=== PATIENT | female | born 1960 | race Caucasian/White ===

== ENCOUNTER → 2016-06-10 | Outpatient (CLI) | payer OTHER ==
[~2016-06-10] VITALS: Ht 162.6 cm; Wt 130.8 kg
[~2016-06-10] MED LIST: AMBIEN 5 MG TABL5 M1 PO; ATORVASTATIN CA40 MG PO; BUTALB-APAP-CA1 EACH PO; CELEBREX 200 M200 M1 PO; CLONAZEPAM 0.50.5 M1 PO; HYSINGLA ER60 MG PO; LISINOPRIL20 MG PO; LYRICA 75 MG CA75 MG PO; MEDROLDOSEPACK PO; METFORMIN HCL500 MG PO; MS CONTIN15 MG PO; PROAIR HFA8.5 GM; PROTONIX40 M1 PO; ROXICODONE5 M2 PO; ROXICODONE5 MG PO; SERTRALINE HCL50 MG PO; SKELAXIN 800 M800 MG PO; SYMBICORT160 MCG/4. INH; TIZANIDINE HCL 22 M1 PO; TIZANIDINE HCL6 MG PO; TRAMADOL 50 MG50 MG PO; VICODIN 5-3001 EACH PO; VOLTAREN GEL 1100 G2 TOP; WELLBUTRIN SR150 MG PO; ZANAFLEX4 MG PO; ZOCOR40 MG PO; ZPAK PO
--- NOTE | ~2016-06-10 | HPC ---
[facility] [place] [place] [address] PAIN MANAGEMENT CONSULTATION Name: BERNARD MONACO Room #: REG Sara Guillory.#: [id number] Admission: 06/10/16 Attend Phys: Tu Varner DO Discharge: Date of : 62 Report #: [id number] THIS REPORT FOR: //name// CC: Deirdre Varner DATE OF SERVICE: 06/10/2016 The patient is a 56-year-old female being treated for DJD bilateral knees, status post left total knee arthroplasty, significant pain right knee. She prior had trauma to the right ankle, I think late last year had increasing pain, axial back pain requiring complex medication management. Last seen in pain clinic 04/15/2016, continued on Hysingla 60 mg 1 a day, tizanidine 2 mg t.i.d., tramadol p.r.n. The patient returns to pain clinic today noting medications are generally helpful. She has continued to home physical therapy every other day and stretching daily. Rates her current pain as 3/10. Average daily pain score is 4-5 on a 0-10 visual analog scale, worse pain as 7/10. She did have a steroid injection in her right knee in April and this has overall improved function. Uses a cane in left hand. Still uses a brace in the right knee, is actually scheduled to have a right total knee arthroplasty at some point in near future because the date has not been set yet. PHYSICAL EXAMINATION: Shows obese 56-year-old female, BMI is 49.5 kilograms per meter squared, vital signs are otherwise within normal limits as noted on the EMR. She does not use tobacco products. Rises from the chair using armrest, has an antalgic gait favoring the right leg. Uses a cane in left hand. Pain impact score is 2 out 70. ASSESSMENT: Degenerative joint disease affecting bilateral lower extremities. Status post left total knee arthroplasty, significant pain, right knee and ankle, chronic pain syndrome requiring complex medication management, axial back pain. Stable on baseline medications. RECOMMENDATIONS: 1. Urine drug screen today. 2. Make the urine drug screen today. No aberrant behavior suggestive for drug diversion, simply complying with our opiate consent to treat contract. I do not actually see prior UDS on the chart. 3. Continue Hysingla 60 mg 1 a day, tizanidine 2 mg t.i.d., tramadol 150 mg 1 tablet 3-4 times a day, limit 100 tablets for 30 days, taken the liberty of writing for 2 months of current medications. We will review urine drug screen [address] [address] PAIN MANAGEMENT CONSULTATION Name: BERNARD MONACO Room #: REG [facility] Zoya#: [id number] Admission: 06/10/16 Attend Phys: Tu Varner DO Discharge: Date of : 62 Report #: [id number] at that time and hopefully discuss proposed medication management for total knee arthroplasty as needed. <ELECTRONICALLY SIGNED> By: Tu Varner DO 06/11/16 0736 1523 0246 Tu Varner DO /nt
[2016-06-10 14:39] VITALS: BP 122/81
== END | disposition home or self-care (01) ==
LOC: PAIN 07:26
DX: M17.0 Bilateral primary osteoarthritis of knee (principal); M25.561 Pain in right knee; M25.571 Pain in right ankle and joints of right foot; G89.4 Chronic pain syndrome; M25.9 Joint disorder, unspecified; F11.20 Opioid dependence, uncomplicated; Z96.652 Presence of left artificial knee joint

== ENCOUNTER → 2016-08-05 | Outpatient (CLI) | payer OTHER ==
[~2016-08-05] VITALS: Ht 162.6 cm; Wt 136.1 kg
--- NOTE | ~2016-08-05 | HPC ---
[facility] [place] [address] PAIN MANAGEMENT CONSULTATION Name: BERNARD MONACO Room #: REG [facility] Pastora.#: [id number] Admission: 08/05/16 Attend Phys: Tu Varner DO Discharge: Date of : 62 Report #: [id number] THIS REPORT FOR: //name// CC: Deirdre Varner DATE OF SERVICE: 08/05/2016 The patient is a 56-year-old female being treated for DJD bilateral knees, chronic pain requiring complex medication management. Last visit was 06/10/2016. Urine drug screen at that time was positive for prescribed medications. She continues on Hysingla 60 mg 1 a day, tizanidine 2 mg t.i.d. for muscle spasm. She notes she is planning to have her right total knee arthroplasty done 08/23/2016 (left total knee arthroplasty was done I believe within the past 1-2 years). She understands she will be in a senior living facility for a short time following surgery (I believe she was at [facility] following her contralateral total knee arthroplasty). She notes medications are helping with chronic pain. She rates her pain anywhere from 6 today, but usually, it is about 3 on a 0-10 visual analog scale. She notes that right knee is becoming more and more problematic. We reviewed the fact that opiate medications are being used to provide analgesia adequate to support activities of daily living, not attempting to achieve a specific pain score on the 0-10 Visual Analog Scale. The current opiate medications are providing sufficient analgesia to allow the patient to participate in activities of daily living. The patient is not exhibiting any aberrant behavior suggestive of drug diversion. The patient is not having any adverse reactions to medications. The patient is not suffering from daytime somnolence or mental acuity changes. The patient is managing opiate-induced constipation with appropriate blck-bpc-utupigi agents and dietary considerations. The patient was counseled on concern for caution with operating a motor vehicle while using opiate medications. A physical exam was performed and the patient's functional status was evaluated. All patients with back pain were advised against the bed rest greater than 4 days and were advised to return to normal activities. Pain score assessment was noted and the treatment plan was reviewed with the patient. All current medications, both prescribed and OTC were reviewed and reconciled on the electronic medical record. Tobacco screening was accomplished and smoking cessation was advised when indicated. BMI was noted and diet/exercise modification was recommended for all patients following outside normal [address] [address] PAIN MANAGEMENT CONSULTATION Name: BERNARD MONACO Room #: REG [facility] Kenny#: [id number] Admission: 08/05/16 Attend Phys: Tu Varner DO Discharge: Date of : 62 Report #: [id number] parameters. I reviewed with the patient today their responsibilities to safeguard prescription medications, reviewed their responsibility to utilize medications only as prescribed by the physician. They are to seek and receive pain medications only from 1 physician group ( [facility]). They are to use 1 pharmacy and keep the clinic informed if they change pharmacies. Their responsibilities include making followup visits in a timely fashion and to avoid abrupt discontinuation of medication usage. Their responsibilities further include bringing their medications (bottles from the pharmacy with residual pills) to the visit for possible confirmation of pill counts and the patient understands it is their responsibility to submit to random drug screens to ensure both that the medications prescribed are present, and that no other controlled substances are present. All prescriptions provided today were generated electronically. PHYSICAL EXAMINATION: Shows a 56-year-old female, morbidly obese with BMI 51.5 kilograms per meter squared. Vital signs are stable as noted in the EMR. Rises from chair using armrest, uses a cane in her right hand, markedly antalgic gait. Some ballottable edema in the right knee. ASSESSMENT: Symptomatic degenerative joint disease, bilateral knees; chronic pain syndrome requiring complex medication management, stable on current medication. RECOMMENDATION: Continue Hysingla 60 mg 1 a day, tizanidine for breakthrough pain. Told the patient to discuss with her orthopedic surgeon and/or anesthesiologist. They will likely want her to continue n.p.o. the day of surgery, but to take her Hysingla with a sip of water. I told her that I will enable her to use whatever postoperative pain medicine her orthopedic surgeon typically uses in conjunction with the Hysingla, but we will plan on that being a "short." Discharged in good and stable condition. Follow up in 2 months for reevaluation. <ELECTRONICALLY SIGNED> By: Tu Varner DO 08/06/16 0948 1510 1655 Tu Varner DO /nt
[2016-08-05 14:02] VITALS: BP 113/72
== END ==
LOC: PAIN 07:09
DX: M17.0 Bilateral primary osteoarthritis of knee (principal); G89.4 Chronic pain syndrome; E66.01 Morbid (severe) obesity due to excess calories; Z68.43 Body mass index [BMI] 50.0-59.9, adult; K29.80 Duodenitis without bleeding; Z88.8 Allergy status to other drugs, medicaments and biological substances

== ENCOUNTER → 2016-09-27 | Outpatient (CLI) | payer OTHER ==
[~2016-09-27] VITALS: Ht 162.6 cm; Wt 130.6 kg
--- NOTE | ~2016-09-27 | HPC ---
[facility] [address] [address] PAIN MANAGEMENT CONSULTATION Name: BERNARD MONACO Room #: REG [facility] MConrad.#: [id number] Admission: 09/27/16 Attend Phys: Tu Varner DO Discharge: Date of : 62 Report #: [id number] THIS REPORT FOR: //name// CC: Deirdre Varner HISTORY OF PRESENT ILLNESS: The patient is a 56-year-old female being treated for DJD bilateral knees, chronic pain syndrome requiring complex medication management. She was last seen in the pain clinic on 06/10/2016. The patient was continued on baseline medication including Hysingla 60 mg 1 a day; tramadol 50 mg, limit 100 tablets for 30 days; tizanidine 2 mg t.i.d. Last urine drug screen was 06/10/2016, that was positive for prescribed medications and no others. He returns to pain clinic today, she did actually progress to have a right total knee arthroplasty 5 weeks ago. She had had a left total knee arthroplasty quite some time ago. She notes she is doing well post-surgery. Aching, sore, heavy sensation in the knees. She rates it 3-4 on a VAS. PHYSICAL EXAMINATION: Shows a 56-year-old female, BMI is 49.4 kilograms per meter squared. Vital signs are stable as noted on the EMR. Again, BMI is elevated at 49.4. Nicely healing scar right knee compatible with recent total knee arthroplasty. Does have a little lower extremity edema bilaterally, +1 to 2 pretibial edema. Please note that her right knee flexion is good about 110 degrees. She does have trouble to full extension. Gait is modestly antalgic. We reviewed the fact that opiate medications are being used to provide analgesia adequate to support activities of daily living, not attempting to achieve a specific pain score on the 0-10 Visual Analog Scale. The current opiate medications are providing sufficient analgesia to allow the patient to participate in activities of daily living. The patient is not exhibiting any aberrant behavior suggestive of drug diversion. The patient is not having any adverse reactions to medications. The patient is not suffering from daytime somnolence or mental acuity changes. The patient is managing opiate-induced constipation with appropriate vcto-tba-fcciulo agents and dietary considerations. The patient was counseled on concern for caution with operating a motor vehicle while using opiate medications. A physical exam was performed and the patient's functional status was evaluated. All patients with back pain were advised against the bed rest greater than 4 days and were advised to return to normal activities. Pain score assessment was noted and the treatment plan was reviewed with the patient. All current medications, both prescribed and OTC were reviewed and reconciled on the electronic medical record. Tobacco screening was accomplished and smoking cessation was advised when indicated. BMI was noted and diet/exercise modification was recommended for all patients following outside normal [address] [address] PAIN MANAGEMENT CONSULTATION Name: BERNARD MONACO [id number] Admission: 09/27/16 Attend Phys: Tu Varner DO Discharge: Date of : 62 Report #: [id number] parameters. I reviewed with the patient today their responsibilities to safeguard prescription medications, reviewed their responsibility to utilize medications only as prescribed by the physician. They are to seek and receive pain medications only from 1 physician group ( [facility]). They are to use 1 pharmacy and keep the clinic informed if they change pharmacies. Their responsibilities include making followup visits in a timely fashion and to avoid abrupt discontinuation of medication usage. Their responsibilities further include bringing their medications (bottles from the pharmacy with residual pills) to the visit for possible confirmation of pill counts and the patient understands it is their responsibility to submit to random drug screens to ensure both that the medications prescribed are present, and that no other controlled substances are present. All prescriptions provided today were generated electronically. ASSESSMENT: Degenerative joint disease affecting bilateral knees and hips, knees are the worst; chronic pain syndrome requiring complex medication management. RECOMMENDATIONS: After discussion with the patient, he would like to continue current medication for another 2 months; have her aggressively worked with physical therapy. I will see her back in 2 months, hopefully she is doing well. We will try and wean Hysingla down by 10 mg. <ELECTRONICALLY SIGNED> By: Tu Varner DO 09/27/16 1427 1252 1318 Tu Varner DO /nt
[2016-09-27 11:06] VITALS: BP 140/86
== END | disposition home or self-care (01) ==
LOC: PAIN 07:31
DX: M17.0 Bilateral primary osteoarthritis of knee (principal); M16.0 Bilateral primary osteoarthritis of hip; Z68.42 Body mass index [BMI] 45.0-49.9, adult; Z98.890 Other specified postprocedural states; G89.4 Chronic pain syndrome

== ENCOUNTER → 2016-11-25 | Outpatient (CLI) | payer OTHER ==
[~2016-11-25] VITALS: Ht 162.6 cm; Wt 134.7 kg
--- NOTE | ~2016-11-25 | HPC ---
[facility] [place] [address] [address] PAIN MANAGEMENT CONSULTATION Name: BERNARD MONACO Room #: REG [facility] MConrad.#: [id number] Admission: 11/25/16 Attend Phys: Tu Varner DO Discharge: Date of : 62 Report #: [id number] THIS REPORT FOR: //name// CC: Deirdre Varner The patient is a 56-year-old female being treated for chronic pain syndrome, DJD bilateral knees requiring high risk complex medication management. Last urine drug screen 06/10/2016 was positive for prescribed medications. Last visit 09/27/2016, we continued the patient on baseline medication including Hysingla 60 mg daily, tramadol 50 mg 100 tablets for 30 days, tizanidine 2 mg for spasm. She had had a right total knee arthroplasty in mid July of 2016, has progressed through physical therapy. Returns to pain clinic today. She is actually doing quite well, walking without significant gait abnormality. She rates her pain 3 on a VAS. Does have pain in "all of her joints," primarily lower extremities. She is status post cervical fusion. We talked about increasing physical activity. She walks a great deal of work. I asked if she charted her mileage on her cell phone, she tells me that while she does not, she is looking into buying a Fitbit. She is encouraged about increasing physical activity and weight loss. She is morbidly obese with BMI of 51 kilograms per meter squared (162 cm, 134.7 kilograms). Physical exam today shows 56-year-old female. Blood pressure is elevated at 151/99, repeated at 136/86, pulse 102, respirations 18. Alert and oriented to person, place and time, judged to be a reasonable historian. Again morbidly obese, rises from chair using armrest. Gait is improved from prior visit. Diffuse low back pain. No discrete trigger points noted. We reviewed the fact that opiate medications are being used to provide analgesia adequate to support activities of daily living, not attempting to achieve a specific pain score on the 0-10 Visual Analog Scale. The current opiate medications are providing sufficient analgesia to allow the patient to participate in activities of daily living. The patient is not exhibiting any aberrant behavior suggestive of drug diversion. The patient is not having any adverse reactions to medications. The patient is not suffering from daytime somnolence or mental acuity changes. The patient is managing opiate-induced constipation with appropriate hcxw-rtp-plvkgfo agents and dietary considerations. The patient was counseled on concern for caution with operating a motor vehicle while using opiate medications. A physical exam was performed and the patient's functional status was evaluated. All patients with back pain were advised against the bed rest greater than 4 days and were advised to return to normal activities. Pain score assessment was noted and the treatment plan was reviewed with the patient. All current medications, both prescribed and OTC were reviewed and reconciled on the electronic medical record. Tobacco screening was accomplished and smoking cessation was advised when indicated. BMI was noted and diet/exercise [address] [address] PAIN MANAGEMENT CONSULTATION Name: BERNARD MONACO Room #: REG [facility] Kenny#: [id number] Admission: 11/25/16 Attend Phys: Tu Varner DO Discharge: Date of : 62 Report #: [id number] modification was recommended for all patients following outside normal parameters. I reviewed with the patient today their responsibilities to safeguard prescription medications, reviewed their responsibility to utilize medications only as prescribed by the physician. They are to seek and receive pain medications only from 1 physician group ( [facility]). They are to use 1 pharmacy and keep the clinic informed if they change pharmacies. Their responsibilities include making followup visits in a timely fashion and to avoid abrupt discontinuation of medication usage. Their responsibilities further include bringing their medications (bottles from the pharmacy with residual pills) to the visit for possible confirmation of pill counts and the patient understands it is their responsibility to submit to random drug screens to ensure both that the medications prescribed are present, and that no other controlled substances are present. All prescriptions provided today were generated electronically. Pain impact score is 2/70. Opiate risk assessment tool scores in the low risk category. ASSESSMENT: Degenerative joint disease, bilateral lower extremities, status post right total knee arthroplasty, chronic pain syndrome, morbid obesity, status post cervical decompressive laminectomy, requiring high risk complex medication management. RECOMMENDATION: After a long discussion with the patient today, I have elected to continue baseline medication unchanged, Hysingla 60 mg 1 a day, tramadol 50 mg up to 100 tablets for 30 days, tizanidine 2 mg t.i.d. for spasm. Follow up in 2 months for reevaluation. Encouraged weight reduction by increased activity (encouraged Fitbit) and dietary discretion. Next visit, hopefully we will plan on weaning down to 50 mg on Hysingla. <ELECTRONICALLY SIGNED> By: Tu Varner DO 11/29/16 0840 1638 1618 Tu Varner DO /nt
[2016-11-25 13:46] VITALS: BP 151/99
== END ==
LOC: PAIN 06:39
DX: M54.5 Low back pain (principal)

== ENCOUNTER → 2017-01-28 | Outpatient (CLI) | payer OTHER ==
[~2017-01-28] VITALS: Ht 162.6 cm; Wt 133.4 kg
[~2017-01-28] MED LIST changes: +HYSINGLA ER40 MG PO
--- NOTE | ~2017-01-28 | HPC ---
[facility] [address] [address] [place] [address] PAIN MANAGEMENT CONSULTATION Name: BERNARD MONACO Room #: REG OMER Guillory.#: [id number] Admission: 01/28/17 Attend Phys: Tu Varner DO Discharge: Date of : 62 Report #: [id number] THIS REPORT FOR: //name// CC: Deirdre Varner HISTORY OF PRESENT ILLNESS: The patient is a very pleasant 57-year-old female being treated for chronic pain syndrome requiring high risk complex medication management, significant DJD status post bilateral total knee arthroplasties, morbid obesity as a comorbidity. He returns to pain clinic today noting she has continued to be physically active, rates her pain at 2-3 on a VAS. She completed physical therapy for her total knee arthroplasty (right total knee arthroplasty was in July 2016). She is desirous of continuing to wean opiate as we discussed at last visit. She is currently taking Hysingla 60 mg 1 a day with tramadol p.r.n. Tizanidine does help with muscle spasm. The patient was last in the pain clinic 11/25/2016, prior urine drug screen on 06/10/2016 was positive for prescribed medications. We talked about increasing physical activity, BMI remains elevated at (50.4 kilograms per meter squared). She states that she believes her has purchased for her a Fitbit for [employer], which will be in about 3 weeks. PHYSICAL EXAMINATION: Today is otherwise relatively unchanged, pleasant 57-year-old female, again BMI is 50.4 kilograms per meter squared. Blood pressure is little elevated at 176/79, pulse is 116, respirations 16. Rises from chair easily. Gait is tandem. Lumbar flexion is modestly limited. Nominally antalgic gait, though gait is generally again tandem, symmetric. There is no ballotable knee edema. ASSESSMENT: Chronic pain syndrome, primarily bilateral knees, status post total knee arthroplasties. Comorbidity includes morbid obesity. The patient requiring high risk complex medication management. RECOMMENDATIONS: After discussion with the patient, we elected to continue Hysingla decreasing from 60 to 40 mg a day. I have also renewed tramadol 50 mg 1 tablet 3-4 times a day, limit 100 tablets for 30 days. Continue tizanidine 2 mg t.i.d. for spasm. I have taken the liberty of writing for 2 months [place] [address] PAIN MANAGEMENT CONSULTATION Name: BERNARD MONACO Room #: REG [facility] Zoya#: [id number] Admission: 01/28/17 Attend Phys: Tu Varner DO Discharge: Date of : 62 Report #: [id number] up at that time. We may consider dropping down to a 30 mg tablet and continue to wean as able. Discharged in good and stable condition. <ELECTRONICALLY SIGNED> By: Tu Varner DO 01/31/17 0759 0914 Golden Varner DO /leonor
[2017-01-28 08:53] VITALS: BP 176/79
== END ==
LOC: PAIN 06:40
DX: G89.4 Chronic pain syndrome (principal); E66.01 Morbid (severe) obesity due to excess calories; Z79.899 Other long term (current) drug therapy; Z96.653 Presence of artificial knee joint, bilateral

== ENCOUNTER → 2017-03-24 | Outpatient (CLI) | payer OTHER ==
[~2017-03-24] VITALS: Ht 162.6 cm; Wt 137.0 kg
--- NOTE | ~2017-03-24 | HPC ---
[facility] [place] [address] PAIN MANAGEMENT CONSULTATION Name: BERNARD MONACO Room #: REG [facility] MYasmin.#: [id number] Admission: 03/24/17 Attend Phys: Tu Varner DO Discharge: Date of : 62 Report #: [id number] THIS REPORT FOR: //name// CC: Deirdre Varner HISTORY OF PRESENT ILLNESS: The patient is a 57-year-old female being treated for chronic pain syndrome, status post bilateral total knee arthroplasties, DJD, morbid obesity, has a comorbidity requiring complex medication management. She has been stable on Hysingla ER 60 mg for some time. Last visit, she was doing well status post knee surgery. We elected to try and wean Hysingla. I wrote for 40 mg prescription down from 60. We also use tramadol for breakthrough pain. Tizanidine 2 mg for spasm. Unfortunately, she tried this for a short period, she called back about 2 weeks after the medication renewal (02/14/2017) and we exchanged prescription for 60 mg tablets (this was on 02/24/2017 when the prescription was exchanged). He returns to pain clinic today noting that back to the baseline dose of 60 mg Hysingla is efficacious. She rates pain is at 3 on a VAS. History of osteoarthritis "everywhere" status post bilateral total knee arthroplasties with pain in all of her major joints. BMI is elevated at 51.8 kilograms per meter squared. Vital signs stable as noted in the EMR. Subjective pain score is 3 with current opiate analgesic. She has not fallen in the past 3 months, though she uses a cane fine artist. She is hypertensive and medicines were reconciled. Opiate consent to treat, contract was reviewed. This was signed on 04/15/2016. She scored the low-risk opiate category. Pain assessment tool is 29/70. The patient rises from chair using armrest, modestly antalgic gait, diffuse tenderness at all the major joints, though no discrete trigger points or audible edema is noted. We reviewed the fact that opiate medications are being used to provide analgesia adequate to support activities of daily living, not attempting to achieve a specific pain score on the 0-10 Visual Analog Scale. The current opiate medications are providing sufficient analgesia to allow the patient to participate in activities of daily living. The patient is not exhibiting any aberrant behavior suggestive of drug diversion. The patient is not having any adverse reactions to medications. The patient is not suffering from daytime somnolence or mental acuity changes. The patient is managing opiate-induced constipation with appropriate kgap-yfq-gwtpxbx agents and dietary considerations. The patient was counseled on concern for caution with operating a motor vehicle while using opiate medications. A physical exam was performed and the patient's functional status was evaluated. All patients with back pain were advised against the bed rest greater than 4 days and were advised to return to normal activities. Pain score assessment was noted and the treatment plan was reviewed with the patient. All current [address] [address] PAIN MANAGEMENT CONSULTATION Name: BERNARD MONACO Room #: REG [facility] Kenny#: [id number] Admission: 03/24/17 Attend Phys: Tu Varner DO Discharge: Date of : 62 Report #: [id number] medications, both prescribed and OTC were reviewed and reconciled on the electronic medical record. Tobacco screening was accomplished and smoking cessation was advised when indicated. BMI was noted and diet/exercise modification was recommended for all patients following outside normal parameters. I reviewed with the patient today their responsibilities to safeguard prescription medications, reviewed their responsibility to utilize medications only as prescribed by the physician. They are to seek and receive pain medications only from 1 physician group ( [facility]). They are to use 1 pharmacy and keep the clinic informed if they change pharmacies. Their responsibilities include making followup visits in a timely fashion and to avoid abrupt discontinuation of medication usage. Their responsibilities further include bringing their medications (bottles from the pharmacy with residual pills) to the visit for possible confirmation of pill counts and the patient understands it is their responsibility to submit to random drug screens to ensure both that the medications prescribed are present, and that no other controlled substances are present. All prescriptions provided today were generated electronically. ASSESSMENT: Chronic osteoarthritic pain affecting major joints, status post bilateral total knee arthroplasties, morbid obesity requiring high-risk complex medication management. Last random drug screen 11/25/2016 positive for described medications. RECOMMENDATIONS: After a long discussion with the patient today, we elected to continue Hysingla 60 mg daily with tramadol for breakthrough pain 50 mg, 100 tablets for 30 days; tizanidine 2 mg t.i.d. for spasm (latter 2 medications will be phoned in as needed). We will see the patient back in 2 months for reevaluation. As the warm weather approaches and the patient gets further out from a total knee arthroplasty, we will again try weaning down to 40 mg Hysingla at that visit. Discharged in good and stable condition. <ELECTRONICALLY SIGNED> By: Tu Varner DO 03/25/17 0725 [id number] Tu Varner DO /nt
[2017-03-24 14:06] VITALS: BP 128/75
== END ==
LOC: PAIN 06:59
DX: M17.0 Bilateral primary osteoarthritis of knee (principal); E66.01 Morbid (severe) obesity due to excess calories; Z96.653 Presence of artificial knee joint, bilateral; Z79.899 Other long term (current) drug therapy

== ENCOUNTER → 2017-05-19 | Outpatient (CLI) | payer OTHER ==
[~2017-05-19] VITALS: Ht 162.6 cm; Wt 135.4 kg
--- NOTE | ~2017-05-19 | HPC ---
[facility] [address] [place] [address] PAIN MANAGEMENT CONSULTATION Name: BERNARD MONACO Room #: REG [facility] M..#: [id number] Admission: 05/19/17 Attend Phys: Tu Varner DO Discharge: Date of : 62 Report #: [id number] THIS REPORT FOR: //name// CC: Deirdre Varner The patient is a 57-year-old female, being treated for chronic pain syndrome, status post bilateral total knee arthroplasty, myofascial pain component, requiring complex medication management. Comorbidity includes morbid obesity. Last seen in pain clinic 03/24/2017. The patient has been maintained on Hysingla ER 60 mg for sometime. We trialed rotating to 40 mg few months ago with increased pain. She returns to pain clinic today, she is doing reasonably well with Hysingla 60 mg 1 a day. She is now approximately 10 months status post right total knee arthroplasty, this is doing reasonably well. Primary pain is back and upper shoulders. PHYSICAL EXAMINATION: Shows a 57-year-old female, BMI is elevated at 51.2 kg/m2. Blood pressure 141/72, pulse 102, and respirations 16. Cranial nerves 2-12 are grossly intact. She is alert and oriented to person, place and time, judged to be a reasonable historian. Cervical range of motion is modestly limited. Slight decreased left shoulder range of motion, though this is fairly nominal. Diffuse tenderness in the splenius capitis, trapezius and upper thoracic paravertebral muscles. There are no discrete trigger points are noted. She has a well-healed surgical scar in the anterior neck, status post 2 ACDF. We reviewed the fact that opiate medications are being used to provide analgesia adequate to support activities of daily living, not attempting to achieve a specific pain score on the 0-10 Visual Analog Scale. The current opiate medications are providing sufficient analgesia to allow the patient to participate in activities of daily living. The patient is not exhibiting any aberrant behavior suggestive of drug diversion. The patient is not having any adverse reactions to medications. The patient is not suffering from daytime somnolence or mental acuity changes. The patient is managing opiate-induced constipation with appropriate kaka-jaq-bwbxlyy agents and dietary considerations. The patient was counseled on concern for caution with operating a motor vehicle while using opiate medications. A physical exam was performed and the patient's functional status was evaluated. All patients with back pain were advised against the bed rest greater than 4 days and were advised to return to normal activities. Pain score assessment was noted and the treatment plan was reviewed with the patient. All current medications, both prescribed and OTC were reviewed and reconciled on the electronic medical record. Tobacco screening was accomplished and smoking cessation was advised when indicated. BMI was noted and diet/exercise modification was recommended for all patients following outside normal [facility] [address] [place] [address] PAIN MANAGEMENT CONSULTATION Name: BERNARD MONACO Room #: REG [facility] Kenny#: [id number] Admission: 05/19/17 Attend Phys: Tu Varner DO Discharge: Date of : 62 Report #: [id number] parameters. I reviewed with the patient today their responsibilities to safeguard prescription medications, reviewed their responsibility to utilize medications only as prescribed by the physician. They are to seek and receive pain medications only from 1 physician group ([facility]). They are to use 1 pharmacy and keep the clinic informed if they change pharmacies. Their responsibilities include making followup visits in a timely fashion and to avoid abrupt discontinuation of medication usage. Their responsibilities further include bringing their medications (bottles from the pharmacy with residual pills) to the visit for possible confirmation of pill counts and the patient understands it is their responsibility to submit to random drug screens to ensure both that the medications prescribed are present, and that no other controlled substances are present. All prescriptions provided today were generated electronically. ASSESSMENT: Symptomatic myofascial pain in upper back, chronic pain syndrome, status post bilateral total knee arthroplasty, status post anterior cervical disk fusion times 2, requiring complex medication management, comorbidity includes morbid obesity. RECOMMENDATIONS: I had a long discussion with the patient today about therapeutic options. She was seen for greater than 25 minutes, greater than 50% of this time was spent counseling the patient. We elected to get a buccal drug swab today. Last random drug screen was 06/10/2016, positive for prescribed medications at that time. We will continue Hysingla ER 60 mg for another one month. Four-week release will drop down to 40 mg Hysingla. Continue tramadol for breakthrough pain, tizanidine 2 mg up to t.i.d. for spasm. Follow up in 2 months for reevaluation, we will evaluate slight decrease in her hydrocodone load. Again, a primary pain generator at this point appears to be more myofascial in the upper back. CDC recommends that we eschew opiate analgesics for several myofascial pain. She does, however, also have a component of some DJD osteoarthritic component pain as well. Medication list was reconciled today, does include the aforementioned tramadol, hydrocodone and tizanidine along with Zoloft, Lyrica 150 mg b.i.d., clonazepam and bupropion. [facility] [address] [place] [address] PAIN MANAGEMENT CONSULTATION Name: BERNARD MONACO Room #: REG [facility] Pastora#: [id number] Admission: 05/19/17 Attend Phys: Tu Varner DO Discharge: Date of : 62 Report #: [id number] The patient was discharged in good and stable condition after a 25+ minute visit spent counseling the patient, reviewing therapeutic options and concerns. <ELECTRONICALLY SIGNED> By: Tu Varner DO 05/23/17 0714 1609 [id number] Tu Varner DO /nt
[2017-05-19 14:27] VITALS: BP 141/72
== END ==
LOC: PAIN 07:10
DX: G89.4 Chronic pain syndrome (principal); M79.1 Myalgia; Z96.653 Presence of artificial knee joint, bilateral

== ENCOUNTER → 2017-09-06 | Outpatient (CLI) | payer OTHER ==
[~2017-09-06] VITALS: Ht 162.6 cm; Wt 136.1 kg
--- NOTE | ~2017-09-06 | HPC ---
[facility] [address] [place] [address] PAIN MANAGEMENT CONSULTATION Name: BERNARD MONACO Room #: REG [facility] MConrad.#: [id number] Admission: 09/06/17 Attend Phys: Tera Varner DO Discharge: Date of : 62 Report #: [id number] THIS REPORT FOR: //name// CC: Tera Cross MD DATE OF SERVICE: 09/06/2017 REFERRING PHYSICIAN: Deirdre Cross M.D. CHIEF COMPLAINT: Bilateral shoulder pain, bilateral lower extremity pain and low back pain. HISTORY OF PRESENT ILLNESS: As you know, the patient is a 57-year-old female typically treated for axial back pain. She is status post cervical decompression laminectomy x 2. She has undergone treatment for lumbar spinal stenosis and has had a total bilateral knee arthroplasties and continues to experience chronic pain. She has been continued by my partner, Dr. Tu Varner on Hysingla 60 mg dose in the fall and winter seasons and 40 mg dose in the summer and spring. Overall, the patient states her pain is doing fairly well with the 40 mg of Hysingla in conjunction with the tramadol dose of no greater than 4 a day for breakthrough pain. She returns stating a pain of level of 3/10 and states her pain is chronic and aching sensation, exacerbated with standing, walking, weather changes and improves with medications, rest, heat, cold compresses and warmer climate. She returns today and requesting refill of medications. Her total morphine equivalents is 60 morphine equivalents requiring 2-month prescriptions. ALLERGIES: SULFA. CURRENT MEDICATIONS: Hysingla 40 mg once a day, tramadol 50 mg 4 times a day, tizanidine 2 mg twice a day, albuterol 2 puffs q. 4 hours, sertraline 40 mg per day, pantoprazole 40 mg per day, zolpidem 5 mg per day, Symbicort 160/4.5 mcg 2 puffs b.i.d., metformin 500 mg once a day, pregabalin 150 mg twice a day, atorvastatin 40 mg per day, lisinopril 20 mg a day, clonazepam 0.5 mg 4 times a day p.r.n. anxiety and bupropion 150 mg twice a day. SOCIAL HISTORY: The patient denies tobacco, alcohol or IV or illicit drug use. She is working, not receiving workmen's compensation, unaccompanied today. IMAGING DATA: No new imaging available. PHYSICAL EXAMINATION: VITAL SIGNS: Blood pressure 132/65, pulse 100 and respiratory rate 18 and unlabored. The patient is 97% on room air. Height 5 feet 4 inches tall, weight [facility] [address] [place] [address] PAIN MANAGEMENT CONSULTATION Name: BERNARD MONACO Room #: REG [facility] M.R.#: [id number] Admission: 09/06/17 Attend Phys: Tera Varner DO Discharge: Date of : 62 Report #: [id number] 305 pounds and BMI calculated 52.3. GENERAL: Well-developed, well-nourished, well-hydrated, class 3 morbidly obese 57-year-old female, appears her stated age. She is placing current pain score at around 3/10. HEENT: Normocephalic and atraumatic. Pupils equal, round and reactive to light. Extraocular muscles are intact. EXTREMITIES: Show no clubbing, no cyanosis and no edema. MUSCULOSKELETAL: There is palpatory tenderness over the paraspinal musculature of lower lumbar spine and no spinous process tenderness. Lumbar provocation testing including extension, rotation and lateral flexion all intensify axial back pain. There is palpatory tenderness over the cervical region well-healed surgical scars. Noted surgical scars over bilateral knees. The pain is elicited with standing from seated position. ASSESSMENT: 1. Chronic pain syndrome. 2. Lumbar spinal stenosis. 3. History of 2 cervical decompressive laminectomies. 4. Bilateral knee pain status post total knee arthroplasties. 5. Complex medication management with a comorbidity of morbidly, morbidly obese with body mass index of 52.3. PLAN: 1. The patient returns today in followup visit indicating good efficacy with the Hysingla 40 mg dose once a day utilizing tramadol 50 mg up to 4 times a day for breakthrough pain. Total morphine equivalents combining both the Hysingla and tramadol 60 morphine equivalents a day, which she is placing the patient is at moderate risk for opioid issues. This would require the patient to be seen on an every other month basis given her a level of morphine equivalents greater than 50. The patient and I discussed this today. This has been established as part of a criteria here at [facility] to monitor more complicated patients more closely. The patient is amenable and will be seen on an every other month basis. 2. The patient was provided a prescription of Hysingla 40 mg dose 1 tab p.o. every day, #30 releases of today and 4 weeks from today. She was given these prescriptions in written form today. 3. The patient was provided prescription of tramadol 50 mg dose 1 tab p.o. q. 6 hours p.r.n. pain, #100, released today and 4 weeks from today, 2 months' worth of medication. The patient was provided a written prescription for this medication. 4. The patient was provided prescription of tizanidine 2 mg dose 1 tab p.o. t.i.d., given the patient #90, releases of today and 4 weeks from today. Prescription was given in written form. 5. We have reviewed the patient's prescription file with the [facility] and it shows no aberrant filling of opioid medications. Most recent prescriptions were all provided by Dr. Tu Varner. Her tracking of her [address] [address] PAIN MANAGEMENT CONSULTATION Name: BERNARD MONACO Room #: REG CLI Zoya#: [id number] Admission: 09/06/17 Attend Phys: Tera Varner DO Discharge: Date of : 62 Report #: [id number] medication use appears appropriate. 6. We will see the patient back in followup visit in 2 months. <ELECTRONICALLY SIGNED> By: Tera Varner DO 09/07/17 0853 0835 [id number] Tera Varner DO /nt
[2017-09-06 08:08] VITALS: BP 151/80
== END ==
LOC: PAIN 07:25
DX: M48.061 Spinal stenosis, lumbar region without neurogenic claudication (principal); G89.4 Chronic pain syndrome; Z96.651 Presence of right artificial knee joint; Z79.899 Other long term (current) drug therapy

== ENCOUNTER → 2018-01-17 | Outpatient (CLI) | payer OTHER ==
[~2018-01-17] VITALS: Ht 162.6 cm; Wt 138.6 kg
--- NOTE | ~2018-01-17 | HPC ---
[facility] [place] [address] PAIN MANAGEMENT CONSULTATION Name: BERNARD MONACO Room #: REG [facility].#: [id number] Admission: 01/17/18 Attend Phys: Tera Varner DO Discharge: Date of : 62 Report #: [id number] THIS REPORT FOR: //name// CC: Tera Cross MD DATE OF SERVICE: 01/17/2018 CHIEF COMPLAINT: Bilateral shoulder pain, bilateral lower extremity pain, chronic low back pain, bilateral knee pain. HISTORY OF PRESENT ILLNESS: As you know, the patient is a 58-year-old class 3, morbidly obese individual who suffers from chronic neck pain, bilateral shoulder pain for which she has undergone treatments. She also suffers from chronic low back pain, bilateral knee pain for which she has undergone total knee arthroplasties due to osteoarthritis. She continues to experience ongoing pain issues. She returns today in followup visit stating her pain does intensify during the winter days, but is reporting pain score today of only 2/10. She returns today requesting refill on medications. She originally requested possible changes in therapy to escalate dose of Hysingla but remain on her current breakthrough pain medication. She wishes to discuss this today. ALLERGIES: SULFA. CURRENT MEDICATIONS: Hysingla, tramadol, tizanidine, albuterol, sertraline, pantoprazole, zolpidem, Symbicort, metformin, pregabalin, atorvastatin, lisinopril, clonazepam, and bupropion. SOCIAL HISTORY: The patient denies tobacco, alcohol, IV or illicit drug use. She is working, not receiving workmen's compensation, unaccompanied today. IMAGING: No new imaging available. PHYSICAL EXAMINATION: VITAL SIGNS: Blood pressure 144/87, pulse 84, respiratory rate 20 and unlabored. The patient is 97% on room air. Height 5 feet 4 inches tall, weight 294.4 pounds, BMI calculated 50.5. GENERAL: Well-developed, well-nourished, well-hydrated, class 3 severely morbidly obese 58-year-old female, appears stated age, placing pain score today around 2/10. HEENT: Normocephalic, atraumatic. Pupils equal, round, reactive to light. EXTREMITIES: Show no clubbing, no cyanosis, no edema. MUSCULOSKELETAL: Palpatory tenderness over the paraspinal musculature of lower lumbar spine, no spinous process tenderness. Lumbar provocation testing is met with mild increase in axial back pain, no radicular component. Seated straight [facility] [address] [place] [address] PAIN MANAGEMENT CONSULTATION Name: BERNARD MONACO Room #: REG [facility].#: [id number] Admission: 01/17/18 Attend Phys: Tera Varner DO Discharge: Date of : 62 Report #: [id number] leg raising negative. Supine straight leg raising negative. Standing from seated position exacerbates bilateral knee and bilateral hip pain. ASSESSMENT: 1. Spinal stenosis of lumbar spine. 2. Lumbosacral spondylosis without radicular symptoms. 3. Severe morbid obesity. 4. Bilateral lower extremity pain. 5. Osteoarthritis of multiple weightbearing joints. 6. Complicated medication therapy. 7. Chronic intractable pain. PLAN: 1. The patient returns today in followup visit where she has requested a possible change in medication therapy. She requests a possible increase from Hysingla 40 to Hysingla 60 mg dose utilizing tramadol and tizanidine for muscle spasming and breakthrough pain. I have discussed this with the patient today. We can certainly make an adjustment in her Hysingla escalating dose to 60 mg dose, but this would reduce her availability of the breakthrough pain medication in the form of tramadol as she is at a high level of opioid use currently. We offered to the patient an increased Hysingla 60 mg dose removing the breakthrough pain medication as this would be an increase of 20 morphine equivalents in a given day, which is a significant jump or we could remain at current dosing with Hysingla 40 and utilizing the tramadol as needed for pain control. We reviewed this at length today. After our discussion, the patient chose to remain at current dosing. 2. The patient was provided a prescription of Hysingla 40 mg dose 1 tab p.o. q.a.m. I have given the patient #30 releases of today, 4 weeks from today, 2 months' worth of medication. 3. The patient was provided refill prescription of tramadol 50 mg dose 1 tab every 6 hours p.r.n. for pain, I have given the patient #100 tablets, releasing today and 4 weeks from today. 4. We reviewed the fact that opiate medications are being used to provide analgesia adequate to support activities of daily living, not attempting to achieve a specific pain score on the 0-10 Visual Analog Scale. The current opiate medications are providing sufficient analgesia to allow the patient to participate in activities of daily living. The patient is not exhibiting any aberrant behavior suggestive of drug diversion. The patient is not having any adverse reactions to medications. The patient is not suffering from daytime somnolence or mental acuity changes. The patient is managing opiate-induced constipation with appropriate kjdh-zix-chsewdv agents and dietary considerations. The patient was counseled on concern for caution with operating a motor vehicle while using opiate medications. A physical exam was performed and the patient's functional status was evaluated. All patients with back pain were advised against the bed rest greater than 4 [facility] [address] [place] [address] PAIN MANAGEMENT CONSULTATION Name: BERNARD MONACO Room #: REG [facility].#: [id number] Admission: 01/17/18 Attend Phys: Tera Varner DO Discharge: Date of : 62 Report #: [id number] days and were advised to return to normal activities. Pain score assessment was noted and the treatment plan was reviewed with the patient. All current medications, both prescribed and OTC were reviewed and reconciled on the electronic medical record. Tobacco screening was accomplished and smoking cessation was advised when indicated. BMI was noted and diet/exercise modification was recommended for all patients following outside normal parameters. I reviewed with the patient today their responsibilities to safeguard prescription medications, reviewed their responsibility to utilize medications only as prescribed by the physician. They are to seek and receive pain medications only from 1 physician group ([facility]). They are to use 1 pharmacy and keep the clinic informed if they change pharmacies. Their responsibilities include making followup visits in a timely fashion and to avoid abrupt discontinuation of medication usage. Their responsibilities further include bringing their medications (bottles from the pharmacy with residual pills) to the visit for possible confirmation of pill counts and the patient understands it is their responsibility to submit to random drug screens to ensure both that the medications prescribed are present, and that no other controlled substances are present. All prescriptions provided today were generated electronically. 5. The patient was provided a prescription of tizanidine 2 mg dose 1 tab p.o. t.i.d. p.r.n. muscle spasms, #90, releasing today and 4 weeks from today. 6. We will see the patient back in followup visit in 2 months for medication therapy and discuss interventional treatments. <ELECTRONICALLY SIGNED> By: Tera Varner DO 01/24/18 [id number] Tera Varner DO /nt
[2018-01-17 08:16] VITALS: BP 148/79
== END ==
LOC: PAIN 07:57
DX: M25.511 Pain in right shoulder (principal); M25.512 Pain in left shoulder; M79.604 Pain in right leg; M79.605 Pain in left leg; M54.5 Low back pain; M25.561 Pain in right knee; M25.562 Pain in left knee; M48.061 Spinal stenosis, lumbar region without neurogenic claudication; M47.897 Other spondylosis, lumbosacral region; E66.01 Morbid (severe) obesity due to excess calories; G89.4 Chronic pain syndrome; Z79.899 Other long term (current) drug therapy

== ENCOUNTER → 2018-03-14 | Outpatient (CLI) | payer OTHER ==
[~2018-03-14] VITALS: Ht 162.6 cm; Wt 136.5 kg
--- NOTE | ~2018-03-14 | HPC ---
[facility] [address] [place] [address] PAIN MANAGEMENT CONSULTATION Name: BERNARD MONACO Room #: REG [facility] M..#: [id number] Admission: 03/14/18 Attend Phys: Tera Varner DO Discharge: Date of : 62 Report #: [id number] THIS REPORT FOR: //name// CC: Tera Cross MD DATE OF SERVICE: 03/14/2018 REFERRING PHYSICIAN: Deirdre Cross MD CHIEF COMPLAINT: Bilateral shoulder pain, bilateral lower extremity pain, chronic low back pain, bilateral knee pain. HISTORY OF PRESENT ILLNESS: As you know, the patient is a 58-year-old class 3 morbidly obese individual with chronic neck pain, bilateral shoulder pain and bilateral knee pain as well as chronic low back pain. She has been treated by my partner, Dr. Tu Varner, with use of opioid medications. She states pain level today of 3/10. States pain is aching and sore in sensation, exacerbated with standing, walking, weather changes, improves with medications, rest, heat and cold compresses. She returns today in followup visit requesting refill of medications. She is denying any side effects to the therapy at this time. She does indicate that there have been some issues with coverage of the medications in the past, but this appears to be controlled currently. She is on 40 mg Hysingla once a day along with tramadol therapy for intermittent pain control. She returns today requesting refill on medications. She was advised on the last visit to consider weight loss program and exercise to assist with pain control, apparently she has not initiated this treatment option. She returns to discuss medication management. ALLERGIES: SULFA. CURRENT MEDICATIONS: Hysingla, tramadol, tizanidine, albuterol, sertraline, pantoprazole, zolpidem, Symbicort, metformin, pregabalin, atorvastatin, lisinopril, clonazepam and bupropion. SOCIAL HISTORY: The patient denies tobacco, alcohol, IV or illicit drug use. She is working, not receiving workmen's compensation, unaccompanied today. IMAGING: There is no new imaging available. PHYSICAL EXAMINATION: VITAL SIGNS: Blood pressure 152/76, pulse 105, respiratory rate 16 and unlabored. The patient 93% on room air. Height 5 feet 4 inches tall, weight 301.0 pounds, BMI calculated 51.6. GENERAL: Well-developed, well-nourished, well-hydrated, class 3 [place] [address] PAIN MANAGEMENT CONSULTATION Name: BERNARD MONACO Room #: REG [facility]#: [id number] Admission: 03/14/18 Attend Phys: Tera Varner DO Discharge: Date of : 62 Report #: [id number] individual with pain score today 05/07. HEENT: Normocephalic, atraumatic. Pupils equal, round, reactive to light. EXTREMITIES: Show no clubbing, no cyanosis, no edema. MUSCULOSKELETAL: Palpatory tenderness over the paraspinal musculature of lower lumbar spine, no spinous process tenderness. Seated straight leg raising negative. Supine straight leg raising negative. Standing from a seated position exacerbates symptoms as does ambulation affecting bilateral knees, bilateral hips. ASSESSMENT: 1. Spinal stenosis of the lumbar spine. 2. Lumbosacral spondylosis with radicular symptoms. 3. Severe morbid obesity. 4. Bilateral lower extremity pain. 5. Osteoarthritis of multiple weightbearing joints. 6. Complicated medication management. 7. Chronic intractable pain. PLAN: 1. K-TRACS and MO-TRACS were queried today. It appears the patient is filling her medications appropriately. It is noted that the patient has been filling at the same prescription pharmacy, [facility] in [place]. There is no aberrant findings on either of these services. 2. We had a long discussion today about weight loss and exercise. I believe this would significantly improve the patient's overall pain. She is resistant to initiate any physical therapy as she feels this may exacerbate her symptoms. I advised the patient that at a BMI of 50, any weight loss will improve her back pain, certainly will help her bilateral knee pain. Whether this will help her bilateral shoulder pain would remain to be seen. I believe strongly that her weight is a significant contributor to her overall symptoms and would be best treated by reducing her weight than to continue to medicate symptoms. The patient will consider these options. We recommended strongly. We have advised the patient at this time we will be more than willing to support her in seeking bariatric surgery. I believe her symptoms are directly related to her excessive weight and by reducing this weight we may be able to reduce the patient's overall pain and certainly position her in an area where if total knee arthroplasties would be necessary or even surgery in the lower back, this would be done as her weight at present precludes her from even looking towards more aggressive treatment options. We would certainly back Dr. Cross on her request to have the patient to be evaluated and possibly undergo gastric bypass surgery. 3. We reviewed the fact that opiate medications are being used to provide analgesia adequate to support activities of daily living, not attempting to achieve a specific pain score on the 0-10 Visual Analog Scale. The current opiate medications are providing sufficient analgesia to allow the patient to participate in activities of daily living. The patient is not exhibiting any [facility] [address] [place] [place] [address] PAIN MANAGEMENT CONSULTATION Name: BERNARD MONACO Room #: REG [facility].#: [id number] Admission: 03/14/18 Attend Phys: Tera Varner DO Discharge: Date of : 62 Report #: [id number] aberrant behavior suggestive of drug diversion. The patient is not having any adverse reactions to medications. The patient is not suffering from daytime somnolence or mental acuity changes. The patient is managing opiate-induced constipation with appropriate ekgp-gey-vklhrzt agents and dietary considerations. The patient was counseled on concern for caution with operating a motor vehicle while using opiate medications. A physical exam was performed and the patient's functional status was evaluated. All patients with back pain were advised against the bed rest greater than 4 days and were advised to return to normal activities. Pain score assessment was noted and the treatment plan was reviewed with the patient. All current medications, both prescribed and OTC were reviewed and reconciled on the electronic medical record. Tobacco screening was accomplished and smoking cessation was advised when indicated. BMI was noted and diet/exercise modification was recommended for all patients following outside normal parameters. I reviewed with the patient today their responsibilities to safeguard prescription medications, reviewed their responsibility to utilize medications only as prescribed by the physician. They are to seek and receive pain medications only from 1 physician group ([facility]). They are to use 1 pharmacy and keep the clinic informed if they change pharmacies. Their responsibilities include making followup visits in a timely fashion and to avoid abrupt discontinuation of medication usage. Their responsibilities further include bringing their medications (bottles from the pharmacy with residual pills) to the visit for possible confirmation of pill counts and the patient understands it is their responsibility to submit to random drug screens to ensure both that the medications prescribed are present, and that no other controlled substances are present. All prescriptions provided today were generated electronically. 4. The patient was provided a prescription of tizanidine 2 mg dose 1 tab in the morning, 2 tabs at night. She was given #90 tablets, 1 refill, 2 months' worth of medication. 5. The patient was provided prescription of Hysingla ER 40 mg dose once a day, #30 with releases of today and 4 weeks from today. 6. The patient was provided prescription of tramadol 50 mg dose 1 tab p.o. q.i.d. p.r.n. pain, #100 with 1 refill, 2 months' worth of medication. 7. We will see the patient back in followup visit in 2 months. By: [id number] Tera Varner DO /nt
[2018-03-14 14:09] VITALS: BP 152/76
--- NOTE | 2018-03-14 14:14 | NUR ---
Pain Clinic Assessment: 1. History of Osteoarthritis: EVERYWHERE History of Rheumatoid Arthritis: NO 2. Height: 5 ft. 4 in. 162.6 cm. Weight: 301.0 lb. oz. 136.533 kg. Patient's BMI: 51.6 3. Vital Signs: BP: 152/76 Pulse: 105 Resp: 16 Temp: 02 Sat: 93 ECG Mon: 4. Pain Intensity: 3 5. Fall Risk: Dizziness: N Needs help standing or walking: N Fallen in the last 3 months: Y Fall risk comments: 6. Patient on Blood Thinner: None 7. History of Hypertension: Y 8. Opioid Therapy greater than 6 weeks: Y Opiate Contract Signed: 04/15/16 9. Risk Assessment Tool Provided: LOW RISK 03/02 10. Functional Assessment Tool: 11. Recreational Drug Use: Never Drug Type: Tobacco Use: Never Smoker Tobacco Type: Amount or Packs/day: How Many Years: Alcohol Use: No Frequency: Quant:
== END ==
LOC: PAIN 06:58
DX: M47.897 Other spondylosis, lumbosacral region (principal); E66.01 Morbid (severe) obesity due to excess calories; G89.4 Chronic pain syndrome; M19.90 Unspecified osteoarthritis, unspecified site; M48.061 Spinal stenosis, lumbar region without neurogenic claudication; M79.662 Pain in left lower leg; M79.661 Pain in right lower leg; M25.561 Pain in right knee; M25.562 Pain in left knee; Z79.899 Other long term (current) drug therapy

== ENCOUNTER → 2018-05-10 | Outpatient (CLI) | payer OTHER ==
[~2018-05-10] VITALS: Ht 162.6 cm; Wt 138.1 kg
--- NOTE | ~2018-05-10 | HPC ---
[facility] [address] [place] [address] PAIN MANAGEMENT CONSULTATION Name: BERNARD MONACO Room #: REG [facility] M..#: [id number] Admission: 05/10/18 ������������������ Attend Phys: Tera Varner DO Discharge: ������������������ Date of : 62 Report #: [id number] THIS REPORT FOR: //name// CC: Tera Cross MD DATE OF SERVICE: 05/10/2018 CHIEF COMPLAINT: Bilateral shoulder pain, bilateral lower extremity pain, chronic low back pain, bilateral knee pain status post total knee arthroplasties. HISTORY OF PRESENT ILLNESS: As you know, the patient is a class 3 morbidly obese 58-year-old female who continues to experience bilateral shoulder pain, low back pain, bilateral knee pain and lower extremity pain. She has been treated by my partner, Dr. Tu Varner for years with opioid medications. She states today a pain level of around 4/10, exacerbated with weather changes, walking and standing, improves with medications, rest, heat, cold compresses. She returns today in followup visit requesting refill on medications. Her BMI has increased from 51.6-52.2 since our last visit. She has suffered no new injury, no new traumas or any changes in medical history since our last visit except for this increase in weight. She has not sought treatment for her excessive weight problem nor has she started any type of exercise program as we had requested at our last visit. ALLERGIES: SULFA. CURRENT MEDICATIONS: Hysingla, tramadol, tizanidine, albuterol, sertraline, pantoprazole, zolpidem, Symbicort, metformin, pregabalin, atorvastatin, lisinopril, clonazepam, and bupropion. SOCIAL HISTORY: The patient denies tobacco, alcohol, IV or illicit drug use. She is working, not receiving workmen's compensation with plans to retire in 2019. She is unaccompanied today. IMAGING: No new imaging available. PHYSICAL EXAMINATION: VITAL SIGNS: Blood pressure 159/90, pulse 95, respiratory rate 18 and unlabored. The patient is 100% on room air. Height 5 feet 4 inches tall, weight 304.4 pounds, BMI calculated at 52.2. GENERAL: Well-developed, well-nourished, well-hydrated, class 3 severely morbidly obese 58-year-old female appearing stated age, placing current pain score 4/10. HEENT: Normocephalic, atraumatic. Pupils equal, round, reactive to light. [facility] [address] [place] [address] PAIN MANAGEMENT CONSULTATION Name: BERNARD MONACO Room #: REG [facility].#: [id number] Admission: 05/10/18 ������������������ Attend Phys: Tera Varner DO Discharge: ������������������ Date of : 62 Report #: [id number] EXTREMITIES: Show no clubbing, no cyanosis, no edema. MUSCULOSKELETAL: Upper extremity strength appears symmetrical 5/5. She has some discomfort with active and passive range of motion of the bilateral shoulders. She has palpatory tenderness over the paraspinal musculature of lower lumbar spine. No spinous process tenderness. Seated straight leg raising is negative. Supine straight leg raising exacerbates back pain, but no symptoms of radicular component. Weightbearing on the bilateral knees cause increasing pain. ASSESSMENT: 1. Spinal stenosis of the lumbar spine. 2. Lumbar radiculopathy. 3. Lumbosacral spondylosis with radiculopathy. 4. Osteoarthritis of the bilateral shoulders. 5. Osteoarthritis, bilateral knees, status post total knee arthroplasty. 6. Severe morbid obesity. 7. Complicated medication management. 8. Chronic intractable pain. PLAN: 1. The patient returns today in followup visit indicating increased pain over the past 2 months. It is noted that patient's weight has increased from a BMI last visit of 51.6 to now 52.2. We discussed at length at the last visit with the patient that her weight is a significant contributor to her overall pain. We cannot continue to provide opioid medication if the patient is unwilling to help herself. The fact that she continues to gain weight is exacerbating all of her symptoms. If she does not actively participate in some type of weight loss program or exercise program, she is going to continue to gain weight and her pain will intensify. We are not willing nor able to increase her medications further. She needs to begin to take responsibility for her own pain. The weight that she carries is significant nearly double the average woman her age and height. She needs to discuss this with her PCP for referral to either bariatric surgery or some type of eating program. Exercise programs need to be initiated and continued. Would recommend aqua therapy followed by land-based therapy. 2. The patient will submit to urine drug screen today as part of our screening process for chronic opioid patients taking medication. She can call for the results next week. She states that we will find no aberrancy within this urine drug screen. 3. The patient was provided a prescription of Hysingla 40 mg dose 1 tab p.o. q.a.m. I have given the patient #30, releases of today and 4 weeks from today. This is 40 morphine equivalents per day, below the CDC's recommended guidelines of no more than 90 morphine equivalents total. [address] [address] PAIN MANAGEMENT CONSULTATION Name: BERNARD MONACO Room #: REG [facility]#: [id number] Admission: 05/10/18 ������������������ Attend Phys: Tera Varner DO Discharge: ������������������ Date of : 62 Report #: [id number] 4. The patient was provided prescription of tramadol 50 mg dose 1 tab p.o. q. 6 hours p.r.n. for pain, #100, given prescription with 1 refill, 2 months' worth of medication. 5. The patient was provided prescription of tizanidine 2 mg dose 1 tab p.o. q.i.d. p.r.n. #90, 1 refill, 2 months' worth of medication. 6. We reviewed the fact that opiate medications are being used to provide analgesia adequate to support activities of daily living, not attempting to achieve a specific pain score on the 0-10 Visual Analog Scale. The current opiate medications are providing sufficient analgesia to allow the patient to participate in activities of daily living. The patient is not exhibiting any aberrant behavior suggestive of drug diversion. The patient is not having any adverse reactions to medications. The patient is not suffering from daytime somnolence or mental acuity changes. The patient is managing opiate-induced constipation with appropriate paqx-nmk-ctswtio agents and dietary considerations. The patient was counseled on concern for caution with operating a motor vehicle while using opiate medications. A physical exam was performed and the patient's functional status was evaluated. All patients with back pain were advised against the bed rest greater than 4 days and were advised to return to normal activities. Pain score assessment was noted and the treatment plan was reviewed with the patient. All current medications, both prescribed and OTC were reviewed and reconciled on the electronic medical record. Tobacco screening was accomplished and smoking cessation was advised when indicated. BMI was noted and diet/exercise modification was recommended for all patients following outside normal parameters. I reviewed with the patient today their responsibilities to safeguard prescription medications, reviewed their responsibility to utilize medications only as prescribed by the physician. They are to seek and receive pain medications only from 1 physician group ( [facility]). They are to use 1 pharmacy and keep the clinic informed if they change pharmacies. Their responsibilities include making followup visits in a timely fashion and to avoid abrupt discontinuation of medication usage. Their responsibilities further include bringing their medications (bottles from the pharmacy with residual pills) to the visit for possible confirmation of pill counts and the patient understands it is their responsibility to submit to random drug screens to ensure both that the medications prescribed are present, and that no other controlled substances are present. All prescriptions provided today were generated electronically. 7. The patient to return to our clinic in 2 months. We strongly suggest that the patient look into eating disorder program, aqua therapy, [place] [address] PAIN MANAGEMENT CONSULTATION Name: MONACOBERNARD Room #: REG [facility]#: [id number] Admission: 05/10/18 ������������������ Attend Phys: Tera Varner DO Discharge: ������������������ Date of : 62 Report #: [id number] land-based therapy program and also discussed the possibility of bariatric surgery. ��������������������������������������������� ���������������������������������������� By: ��������������������������������������������� [id number] Tera Varner DO /nt
[2018-05-10 09:07] VITALS: BP 159/90
--- NOTE | 2018-05-10 09:21 | NUR ---
Pain Clinic Assessment: 1. History of Osteoarthritis: EVERYWHERE History of Rheumatoid Arthritis: NO 2. Height: 5 ft. 4 in. 162.6 cm. Weight: 304.4 lb. oz. 138.075 kg. Patient's BMI: 52.2 3. Vital Signs: BP: 159/90 Pulse: 95 Resp: 18 Temp: 02 Sat: 100 ECG Mon: 4. Pain Intensity: 4 5. Fall Risk: Dizziness: Y Needs help standing or walking: Y Fallen in the last 3 months: N Fall risk comments: 6. Patient on Blood Thinner: None 7. History of Hypertension: Y 8. Opioid Therapy greater than 6 weeks: Y Opiate Contract Signed: 04/15/16 9. Risk Assessment Tool Provided: LOW RISK 03/02 10. Functional Assessment Tool: 11. Recreational Drug Use: Never Drug Type: Tobacco Use: Never Smoker Tobacco Type: Amount or Packs/day: How Many Years: Alcohol Use: No Frequency: Quant:
== END ==
LOC: PAIN 07:01
DX: M47.27 Other spondylosis with radiculopathy, lumbosacral region (principal); M48.061 Spinal stenosis, lumbar region without neurogenic claudication; G89.4 Chronic pain syndrome; M19.011 Primary osteoarthritis, right shoulder; M19.012 Primary osteoarthritis, left shoulder; M17.0 Bilateral primary osteoarthritis of knee; E66.01 Morbid (severe) obesity due to excess calories; Z79.899 Other long term (current) drug therapy; Z68.43 Body mass index [BMI] 50.0-59.9, adult

== ENCOUNTER → 2018-07-11 | Outpatient (CLI) | payer OTHER ==
[~2018-07-11] VITALS: Ht 162.6 cm; Wt 135.9 kg
[~2018-07-11] MED LIST changes: +ZANAFLEX2 MG PO
[2018-07-11 08:08] VITALS: BP 153/79
--- NOTE | 2018-07-11 08:14 | NUR ---
Pain Clinic Assessment: 1. History of Osteoarthritis: EVERYWHERE History of Rheumatoid Arthritis: NO 2. Height: 5 ft. 4 in. 162.6 cm. Weight: 299.6 lb. oz. 135.898 kg. Patient's BMI: 51.4 3. Vital Signs: BP: 153/79 Pulse: 109 Resp: 18 Temp: 02 Sat: 96 ECG Mon: 4. Pain Intensity: 2.5 5. Fall Risk: Dizziness: N Needs help standing or walking: N Fallen in the last 3 months: N Fall risk comments: 6. Patient on Blood Thinner: None 7. History of Hypertension: Y 8. Opioid Therapy greater than 6 weeks: Y Opiate Contract Signed: 04/15/16 9. Risk Assessment Tool Provided: LOW RISK 03/02 10. Functional Assessment Tool: 11. Recreational Drug Use: Never Drug Type: Tobacco Use: Never Smoker Tobacco Type: Amount or Packs/day: How Many Years: Alcohol Use: No Frequency: Quant:
--- NOTE | 2018-07-13 07:33 | HPC ---
[facility] [address] [place] [address] PAIN MANAGEMENT CONSULTATION Name: BERNARD MONACO Room #: REG [facility]..#: [id number] Admission: 07/11/18 ������������������ Attend Phys: Rhianna Perla Discharge: ������������������ Date of : 62 Report #: [id number] THIS REPORT FOR: //name// CC: Rhianna Perla Deirdre Cross DATE OF SERVICE: 07/11/2018 CHIEF COMPLAINT: Bilateral shoulder pain, bilateral lower extremity pain, chronic low back pain, bilateral knee pain, status post knee arthroplasties. HISTORY OF PRESENT ILLNESS: A very pleasant 58-year-old female who returns to the pain clinic today for continuation of her opioid medications she uses to treat her shoulder pain, knee pain and low back pain. She tells me that her pain score today is 2.5, mostly in her upper joints and shoulders. She tells me that her arms have been cramping lately. She did see her primary care doctor last week and she is starting physical therapy for her upper extremities to help with strengthening. She tells me she has also been having some essential tremors and is scheduled to see Dr. Flanagan later this month. She does have a family history of essential tremors. She is on no medications for this currently. The patient tells me that her pain is worse with standing, walking and weather changes, but the medications are very helpful as well as rest and heat and cold. She has no problems with daytime sleepiness or overmedication filling or any problems with constipation. ALLERGIES: SULFA. CURRENT MEDICATIONS: Tramadol 50 mg p.r.n., tizanidine 2 mg 1 in the morning and 2 at night, Hysingla 40 mg daily, albuterol p.r.n., Zoloft 25 mg, Protonix 40 mg b.i.d., Ambien 5 mg at bedtime, Symbicort daily, metformin 250 mg daily, Lyrica 150 mg b.i.d., Lipitor 40 mg daily, Zestril 20 mg daily, clonazepam 0.5 mg p.r.n. PQRS: 1. She does have arthritic changes in all of her major joints. She is not being treated for rheumatoid arthritis. 2. Height is 5 feet 4 inches, weight is 299, BMI is 51. Vital signs: Blood pressure 153/79, pulse is 109, respirations 18, oxygen sat is 96. 3. Pain score 2.5. 4. Fall risk: Denies dizziness. Does not need help walking or standing. Has not fallen in the last three months. 5. The patient is not on any blood thinners, does take medicine for hypertension. 6. Opioid therapy is greater than six weeks; therefore, an opioid signed contract is on the chart. Her risk assessment tool is low. Her functional assessment is 29/70. [address] [address] PAIN MANAGEMENT CONSULTATION Name: BERNARD MONACO Room #: REG [facility].#: [id number] Admission: 07/11/18 ������������������ Attend Phys: Rhianna Perla Discharge: ������������������ Date of : 62 Report #: [id number] 7. Recreational drug use: She denies. She is not a smoker and does not drink alcohol. We did check the prescription monitoring system. The patient is on time for her medication fills and there is a recent drug screen on the chart that is appropriate for her medicines. She does safeguard her medicines at all times. PHYSICAL EXAMINATION: GENERAL: This is a well-developed, well-nourished, well-hydrated class 3, morbidly obese 58-year-old female who appears her stated age, placing her pain score today at 2.5. HEENT: Normocephalic, atraumatic. Pupils equal, round and reactive to light. EXTREMITIES: No clubbing, no cyanosis, no edema. MUSCULOSKELETAL: She has some discomfort in range of motion of her bilateral shoulders and tenderness in her lower back. Weightbearing on her knees causes increased pain and her upper and lower extremity strength appears symmetrical at 5/5. ASSESSMENT: 1. Spinal stenosis of the lumbar spine. 2. Lumbar radiculopathy. 3. Lumbosacral spondylosis with radiculopathy. 4. Osteoarthritis of the bilateral shoulders. 5. Osteoarthritis of bilateral knees, status post total knee arthroplasty. 6. Morbid obesity. 7. Complex medication management. We reviewed the fact that opiate medications are being used to provide analgesia adequate to support activities of daily living, not attempting to achieve a specific pain score on the 0-10 Visual Analog Scale. The current opiate medications are providing sufficient analgesia to allow the patient to participate in activities of daily living. The patient is not exhibiting any aberrant behavior suggestive of drug diversion. The patient is not having any adverse reactions to medications. The patient is not suffering from daytime somnolence or mental acuity changes. The patient is managing opiate-induced constipation with appropriate jxhw-dcd-lapqkvq agents and dietary considerations. The patient was counseled on concern for caution with operating a motor vehicle while using opiate medications. A physical exam was performed and the patient's functional status was evaluated. All patients with back pain were advised against the bed rest greater than 4 days and were advised to return to normal activities. Pain score assessment was noted and the treatment plan was reviewed with the patient. All current medications, both prescribed and OTC were reviewed and reconciled on the electronic medical record. Tobacco screening was accomplished and smoking cessation was advised when indicated. BMI was noted and diet/exercise [facility] [address] [place] [address] PAIN MANAGEMENT CONSULTATION Name: BERNARD MONACO Room #: REG [facility]..#: [id number] Admission: 07/11/18 ������������������ Attend Phys: Rhianna Perla Discharge: ������������������ Date of : 62 Report #: [id number] modification was recommended for all patients following outside normal parameters. I reviewed with the patient today their responsibilities to safeguard prescription medications, reviewed their responsibility to utilize medications only as prescribed by the physician. They are to seek and receive pain medications only from 1 physician group ( [facility]). They are to use 1 pharmacy and keep the clinic informed if they change pharmacies. Their responsibilities include making followup visits in a timely fashion and to avoid abrupt discontinuation of medication usage. Their responsibilities further include bringing their medications (bottles from the pharmacy with residual pills) to the visit for possible confirmation of pill counts and the patient understands it is their responsibility to submit to random drug screens to ensure both that the medications prescribed are present, and that no other controlled substances are present. All prescriptions provided today were generated electronically. PLAN: 1. We discussed treatment options with the patient today. The patient has lost 4 pounds since our last visit, a slight decrease in her BMI from 52 to 51. I encouraged her to continue to be active as possible and continue to lose weight as she is able. This will help her lower extremity pain. The patient tells me she is getting ready to start physical therapy that helps with her upper strength. I encouraged her to do these exercises at home and continue walking or aqua therapy. 2. The patient tells me that she is hopeful to retire next January. We discussed her senior care regarding volunteer work as well as working p.r.n. 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 The patient is hopeful that this will be able to happen after she has retired. 3. Scripts given today for Hysingla 40 mg, #30, for release today and 4 weeks and tramadol 50 mg, #100 with one additional refill as well as tizanidine 2 mg b.i.d., #90 with one additional refill. The patient's morphine milliequivalent is 56; therefore, she is seen on a 2-month basis. 4. The patient is seen with Dr. Tera Varner who also collaborated care today. ��������������������������������������������� <ELECTRONICALLY SIGNED> ���������������������������������������� By: Rhianna Perla ��������������������������������������������� 07/13/18 0733 [id number] Rhianna Perla /leonor
== END ==
LOC: PAIN 06:44
DX: M47.27 Other spondylosis with radiculopathy, lumbosacral region (principal); M48.061 Spinal stenosis, lumbar region without neurogenic claudication; M19.011 Primary osteoarthritis, right shoulder; M19.012 Primary osteoarthritis, left shoulder; E66.01 Morbid (severe) obesity due to excess calories; Z79.899 Other long term (current) drug therapy; Z96.653 Presence of artificial knee joint, bilateral; Z68.43 Body mass index [BMI] 50.0-59.9, adult

== ENCOUNTER → 2018-09-05 | Outpatient (CLI) | payer OTHER ==
[~2018-09-05] VITALS: Ht 162.6 cm; Wt 140.7 kg
[~2018-09-05] MED LIST changes: +TIZANIDINE HCL2 M1 PO
[2018-09-05 08:52] VITALS: BP 164/91
--- NOTE | 2018-09-05 08:59 | NUR ---
Pain Clinic Assessment: 1. History of Osteoarthritis: EVERYWHERE History of Rheumatoid Arthritis: NO 2. Height: 5 ft. 4 in. 162.6 cm. Weight: 310.2 lb. oz. 140.706 kg. Patient's BMI: 53.2 3. Vital Signs: BP: 164/91 Pulse: 101 Resp: 22 Temp: 02 Sat: 96 ECG Mon: 4. Pain Intensity: 3.5 5. Fall Risk: Dizziness: N Needs help standing or walking: N Fallen in the last 3 months: N Fall risk comments: 6. Patient on Blood Thinner: None 7. History of Hypertension: Y 8. Opioid Therapy greater than 6 weeks: Y Opiate Contract Signed: 04/15/16 9. Risk Assessment Tool Provided: LOW RISK 03/02 10. Functional Assessment Tool: 11. Recreational Drug Use: Never Drug Type: Tobacco Use: Never Smoker Tobacco Type: Amount or Packs/day: How Many Years: Alcohol Use: No Frequency: Quant:
--- NOTE | 2018-09-07 09:13 | HPC ---
[facility] [place] [place] [address] PAIN MANAGEMENT CONSULTATION Name: BERNARD MONACO Room #: REG [facility]..#: [id number] Admission: 09/05/18 ������������������ Attend Phys: Rhianna Perla Discharge: ������������������ Date of : 62 Report #: [id number] THIS REPORT FOR: //name// CC: Rhianna Perla Deirdre Cross DATE OF SERVICE: 09/05/2018 CHIEF COMPLAINT: Bilateral shoulder pain and bilateral knee pain, status post knee arthroplasties. HISTORY OF PRESENT ILLNESS: This is a very pleasant 58-year-old female who returns to the pain clinic today for refill of her medications that she uses to help treat her ongoing shoulder and knee pain as well as low back pain. She tells me her pain is a 3-1/2 today and it is very stable with her current pain regimen. She is excited to tell me that she has been walking more using her Fitbit and trying to exercise more using stairs. She did go to [place] recently and was able to walk up a hill and down to her feet without difficulty. She is going to [place] tomorrow for a few days and is excited to know that she is able to walk slowly for short distances and then take a break and walks more as she is building her endurance. The patient tells me that she does not have any problems with constipation. She uses coconut oil and stool softeners to control this. She feels that the medication and rest and heat are very helpful in controlling her pain. ALLERGIES: SULFA. CURRENT LIST OF MEDICATIONS: Tizanidine 2 mg 1 in the morning and 2 at night, tramadol 50 mg p.r.n., Hysingla ER 40 mg daily, ProAir, Zoloft, Protonix, Ambien, Symbicort, Glucophage, Lyrica, Lipitor, Zestril and clonazepam. PQRS: 1. The patient has a history of osteoarthritis in her shoulders and knees and lower back. She denies any rheumatoid arthritis. 2. Height is 5 feet 4 inches, weight is 310 and BMI is 53. 3. VITAL SIGNS: Blood pressure 164/91, pulse is 101, respirations 22 and oxygen sat is 96. 4. Pain score is 3-1/2. 5. Fall risk. Denies dizziness. Does not need help walking or standing and has not fallen in the last 3 months. 6. The patient is not on blood thinners. She does take medicine for hypertension. 7. Opioid therapy is greater than 6 weeks; therefore, an opioid signed contract is on the chart. Risk assessment tool is low. Functional assessment is 29/70. 8. Recreational drug use, she denies. She is not a smoker and does not drink [address] [address] PAIN MANAGEMENT CONSULTATION Name: BERNARD MONACO [id number] Admission: 09/05/18 ������������������ Attend Phys: Rhianna Perla Discharge: ������������������ Date of : 62 Report #: [id number] alcohol. We did check the prescription monitoring system, the patient is filling appropriately from Dr. Varner for her medications in a timely fashion and there is a recent drug screen on the chart that is appropriate for her medications. PHYSICAL EXAMINATION: GENERAL: This is a well-developed, well-nourished, well-hydrated class 3 severely morbidly obese 58-year-old female who appears her stated age, placing her current pain score at 3-1/2. She is alert and orientated. HEENT: Normocephalic and atraumatic. Pupils equal, round and reactive to light. Mucous membranes are moist. EXTREMITIES: No clubbing and no cyanosis. She does have edema in her lower extremities of 2-3+. MUSCULOSKELETAL: Upper extremity strength appears symmetrical at 5/5. She has discomfort in her bilateral shoulders with active and passive range of motion. Seated straight leg raising is negative. Supine straight leg raising exacerbates back pain. No radicular components noted today. Bilateral knees have increased pain with weightbearing activities. ASSESSMENT: 1. Spinal stenosis of the lumbar spine. 2. Lumbar radiculopathy. 3. Lumbosacral spondylosis with radiculopathy. 4. Osteoarthritis of the bilateral shoulders. 5. Osteoarthritis, bilateral knees, status post total knee arthroplasty. 6. Severe morbid obesity. 7. Complex medical management under terms of written opioid agreement. 8. Chronic intractable pain. We reviewed the fact that opiate medications are being used to provide analgesia adequate to support activities of daily living, not attempting to achieve a specific pain score on the 0-10 Visual Analog Scale. The current opiate medications are providing sufficient analgesia to allow the patient to participate in activities of daily living. The patient is not exhibiting any aberrant behavior suggestive of drug diversion. The patient is not having any adverse reactions to medications. The patient is not suffering from daytime somnolence or mental acuity changes. The patient is managing opiate-induced constipation with appropriate dqpj-pmu-oowohof agents and dietary considerations. The patient was counseled on concern for caution with operating a motor vehicle while using opiate medications. A physical exam was performed and the patient's functional status was evaluated. All patients with back pain were advised against the bed rest greater than 4 days and were advised to return to normal activities. Pain score assessment was noted and the treatment plan was reviewed with the patient. All current [facility] [address] [place] [address] PAIN MANAGEMENT CONSULTATION Name: BERNARD MONACO Room #: REG [facility] M.R.#: [id number] Admission: 09/05/18 ������������������ Attend Phys: Rhianna JANET Perla Discharge: ������������������ Date of : 62 Report #: [id number] medications, both prescribed and OTC were reviewed and reconciled on the electronic medical record. Tobacco screening was accomplished and smoking cessation was advised when indicated. BMI was noted and diet/exercise modification was recommended for all patients following outside normal parameters. I reviewed with the patient today their responsibilities to safeguard prescription medications, reviewed their responsibility to utilize medications only as prescribed by the physician. They are to seek and receive pain medications only from 1 physician group ( [facility]). They are to use 1 pharmacy and keep the clinic informed if they change pharmacies. Their responsibilities include making followup visits in a timely fashion and to avoid abrupt discontinuation of medication usage. Their responsibilities further include bringing their medications (bottles from the pharmacy with residual pills) to the visit for possible confirmation of pill counts and the patient understands it is their responsibility to submit to random drug screens to ensure both that the medications prescribed are present, and that no other controlled substances are present. All prescriptions provided today were generated electronically. PLAN: 1. We discussed the patient's weight that it has increased since her last visit. We did talk about decreasing sodium to see if that will help reduce some of her swelling in her legs, also to increase her activity, which she has started doing that and was excited that she has been able to walk upstairs and walk longer distances. I encouraged her since she is off school right now due to continue walking at small increments and gradually increasing her distance and endurance. The patient tells me that she will try to do that. She is disappointed that she had gained weight since we last saw her. 2. The patient's urine drug screen was appropriate for her medications that she is being provided. There was no aberrancy within this drug screen. 3. The patient was provided a prescription for Hysingla 40 mg 1 tablet every day, script for #30, for release today and 4 weeks as well as tramadol 50 mg 1 tablet every 6 hours p.r.n., #100 with 1 refill and tizanidine 2 mg 1 tablet #90 p.r.n. for 2 months. 4. The patient is below the 90 morphine milliequivalent according to the CDC guidelines at about 40 morphine milliequivalent; therefore, she is seen every 2 months for her medications. 5. The patient is seen in collaboration with Dr. Tera Varner who did see the patient as well today. ��������������������������������������������� <ELECTRONICALLY SIGNED> ���������������������������������������� By: Rhianna Perla ��������������������������������������������� 09/07/18 0913 [id number] Rhianna Perla /leonor
== END ==
LOC: PAIN 06:43
DX: M47.27 Other spondylosis with radiculopathy, lumbosacral region (principal); M48.061 Spinal stenosis, lumbar region without neurogenic claudication; G89.4 Chronic pain syndrome; M19.011 Primary osteoarthritis, right shoulder; M19.012 Primary osteoarthritis, left shoulder; M17.0 Bilateral primary osteoarthritis of knee; E66.01 Morbid (severe) obesity due to excess calories; Z79.891 Long term (current) use of opiate analgesic; Z96.653 Presence of artificial knee joint, bilateral; Z68.43 Body mass index [BMI] 50.0-59.9, adult

== ENCOUNTER → 2018-11-07 | Outpatient (CLI) | payer OTHER ==
[~2018-11-07] VITALS: Ht 162.6 cm; Wt 136.5 kg
[~2018-11-07] MED LIST changes: +HYSINGLA ER30 MG PO
[2018-11-07 13:28] VITALS: BP 157/59
--- NOTE | 2018-11-07 13:36 | NUR ---
Pain Clinic Assessment: 1. History of Osteoarthritis: elbows hands ankles low back knees shoulders History of Rheumatoid Arthritis: NO 2. Height: 5 ft. 4 in. 162.6 cm. Weight: 301.0 lb. oz. 136.533 kg. Patient's BMI: 51.6 3. Vital Signs: BP: 157/59 Pulse: 91 Resp: 18 Temp: 02 Sat: 93 ECG Mon: 4. Pain Intensity: 4 5. Fall Risk: Dizziness: N Needs help standing or walking: N Fallen in the last 3 months: Y Fall risk comments: 6. Patient on Blood Thinner: None 7. History of Hypertension: Y 8. Opioid Therapy greater than 6 weeks: Y Opiate Contract Signed: 04/15/16 9. Risk Assessment Tool Provided: LOW RISK 1 10. Functional Assessment Tool: 11. Recreational Drug Use: Never Drug Type: Tobacco Use: Never Smoker Tobacco Type: Amount or Packs/day: How Many Years: Alcohol Use: No Frequency: Quant:
--- NOTE | 2018-11-09 13:12 | HPC ---
[facility] [address] [place] [address] PAIN MANAGEMENT CONSULTATION Name: BERNARD MONACO Room #: REG [facility] M..#: [id number] Admission: 11/07/18 ������������������ Attend Phys: Rhianna Perla Discharge: ������������������ Date of : 62 Report #: [id number] THIS REPORT FOR: //name// CC: Rhianna Perla Deirdre Cross DATE OF SERVICE: 11/07/2018 CHIEF COMPLAINT: Bilateral lower extremity pain, chronic low back pain, bilateral knee pain, status post total knee arthroplasties. HISTORY OF PRESENT ILLNESS: This is a pleasant 58-year-old who is a class 3 morbidly obese female who returns to the pain clinic for her bilateral shoulder pain and knee pain and low back pain. She has been taking her pain medicine for quite some time under the direction of Dr. Tu Varner and has been doing quite well. Her pain score today is a 4/10. She tells me her pain is worse when she is standing and walking or weather changes, but she did get to go to [place] this summer where she had been doing quite well, walking to the shows and around the shopping centers, but she did fall on her last night there. She tells me that she was fatigued and was not picking up her feet as she should have, tripped and fell. She did not have any injuries to herself and to her surprise was not even sore the next day. She said otherwise she has been doing quite well on her medications. The patient reports that she has decreased some weight, trying to buy exercise program more. In her recent visit, her primary care doctor did start her on hydrochlorothiazide due to some swelling in her lower extremity as well. She hopes that the reduction in some of her swelling may result in some additional weight loss. ALLERGIES: SULFA. CURRENT LIST OF MEDICATIONS: Tizanidine 2 mg 1 in the morning and 2 at night, tramadol 50 mg up to 3 times a day, Hysingla 40 mg daily, Zoloft, Protonix, Ambien, Symbicort, Glucophage, Lyrica 150 b.i.d., Lipitor, Zestril, clonazepam and hydrochlorothiazide 12.5 mg. PQRS: 1. The patient does have osteoarthritis in her bilateral knees, ankles, shoulders and hands. Denies any rheumatoid arthritis. 2. Height is 5 feet 4 inches, weight is 301. Her BMI is 51. 3. Vital signs 157/59, pulse is 91, respirations 18, oxygen sat is 93. 4. Pain score is 4/10. 5. Denies dizziness, does not need help walking or standing, has fallen in the last 3 months. 6. The patient is not on any blood thinners, [place] [address] PAIN MANAGEMENT CONSULTATION Name: BERNARD MONACO Room #: REG [facility]#: [id number] Admission: 11/07/18 ������������������ Attend Phys: Rhianna Perla Discharge: ������������������ Date of : 62 Report #: [id number] hypertension. 7. Opiate therapy is greater than 6 weeks; therefore, an opiate signed contract is on the chart. Her risk assessment tool is low. Functional assessment is 25/70. 8. Recreational drug use, she denies. She is not a smoker and does not drink alcohol. According to the prescription monitoring system, the patient is filling appropriately for her medications. There is a recent drug screen on the chart that is appropriate as well. PHYSICAL EXAMINATION: GENERAL: This is a well-developed, well-hydrated, class 3, morbidly obese 58-year-old female who appears her stated age, placing her current pain score at 4/10. HEENT: Normocephalic, atraumatic. Pupils equal, round and reactive to light. EXTREMITIES: No clubbing, no cyanosis, positive 2+ edema in her right lower extremity. no edema. MUSCULOSKELETAL: She has discomfort in active and passive range of motion in her bilateral shoulders. Weightbearing on her bilateral knees causes increased pain. Upper extremity strength appears to be symmetrical at 5/5. She has some tenderness over her paraspinal musculature of the lower lumbar spine on palpitation. ASSESSMENT: 1. Spinal stenosis of the lumbar spine. 2. Lumbar radiculopathy. 3. Lumbosacral spondylosis with radiculopathy. 4. Osteoarthritis of the bilateral shoulders. 5. Osteoarthritis, bilateral knees, status post total knee arthroplasties. 6. Severe morbidly obesity. 7. Complicated medical management. 8. Chronic intractable pain. We reviewed the fact that opiate medications are being used to provide analgesia adequate to support activities of daily living, not attempting to achieve a specific pain score on the 0-10 Visual Analog Scale. The current opiate medications are providing sufficient analgesia to allow the patient to participate in activities of daily living. The patient is not exhibiting any aberrant behavior suggestive of drug diversion. The patient is not having any adverse reactions to medications. The patient is not suffering from daytime somnolence or mental acuity changes. The patient is managing opiate-induced constipation with appropriate kilg-idf-avairan agents and dietary considerations. The patient was counseled on concern for caution with operating a motor vehicle while using opiate medications. [facility] [address] [place] [address] PAIN MANAGEMENT CONSULTATION Name: BERNARD MONACO Room #: REG [facility]#: [id number] Admission: 11/07/18 ������������������ Attend Phys: Rhianna Perla Discharge: ������������������ Date of : 62 Report #: [id number] A physical exam was performed and the patient's functional status was evaluated. All patients with back pain were advised against the bed rest greater than 4 days and were advised to return to normal activities. Pain score assessment was noted and the treatment plan was reviewed with the patient. All current medications, both prescribed and OTC were reviewed and reconciled on the electronic medical record. Tobacco screening was accomplished and smoking cessation was advised when indicated. BMI was noted and diet/exercise modification was recommended for all patients following outside normal parameters. I reviewed with the patient today their responsibilities to safeguard prescription medications, reviewed their responsibility to utilize medications only as prescribed by the physician. They are to seek and receive pain medications only from 1 physician group ( [facility]). They are to use 1 pharmacy and keep the clinic informed if they change pharmacies. Their responsibilities include making followup visits in a timely fashion and to avoid abrupt discontinuation of medication usage. Their responsibilities further include bringing their medications (bottles from the pharmacy with residual pills) to the visit for possible confirmation of pill counts and the patient understands it is their responsibility to submit to random drug screens to ensure both that the medications prescribed are present, and that no other controlled substances are present. All prescriptions provided today were generated electronically. PLAN: 1. We discussed treatment options with the patient today. I explained to the patient that we received a letter from [employer] stating that they wanted us to reduce her medications to lower them 50 morphine mEq according to the CDC guidelines. According to their calculation, she is at 57. I offered her decreasing her Hysingla to 30 mg once a day and continue her tramadol or Tuesday at Hysingla 40 mg with no tramadol. The patient chose the first option, which I think is a better option and enables her to have some breakthrough pain medicine throughout the day. I believe the patient will do quite well with transitioning to the slightly lower dose without any difficulty. I encouraged her to have her tramadol with her during the first few weeks during this transition in case she has increased breakthrough pain medicine. The patient verbalizes understanding. 2. Scripts given today for Hysingla 30 mg once a day for today and 4-week release, tramadol 50 mg, #100, for 1 additional refill and tizanidine 90 tablets with 1 additional refill of 2 mg. 3. I encouraged the patient to continue with her exercise program. She had decreased significant weight several months ago. In this period, she was down another 9 pounds. The patient explains she is trying to walk more and is feeling better and having greater stamina by doing this. [address] [address] PAIN MANAGEMENT CONSULTATION Name: BERNARD MONACO Room #: REG [facility]#: [id number] Admission: 11/07/18 ������������������ Attend Phys: Rhianna Perla Discharge: ������������������ Date of : 62 Report #: [id number] 4. The patient is seen in collaboration with Dr. Tera Varner. The patient will return in 2 months. ��������������������������������������������� <ELECTRONICALLY SIGNED> ���������������������������������������� By: Rhianna Perla ��������������������������������������������� 11/09/18 1312 [id number] Rhianna Perla /nt
== END ==
LOC: PAIN 06:53
DX: M47.26 Other spondylosis with radiculopathy, lumbar region (principal); M48.062 Spinal stenosis, lumbar region with neurogenic claudication; M17.0 Bilateral primary osteoarthritis of knee; G89.4 Chronic pain syndrome; M19.012 Primary osteoarthritis, left shoulder; M19.011 Primary osteoarthritis, right shoulder; E66.01 Morbid (severe) obesity due to excess calories; Z96.653 Presence of artificial knee joint, bilateral; Z88.2 Allergy status to sulfonamides; Z79.899 Other long term (current) drug therapy

== ENCOUNTER → 2019-01-09 | Outpatient (CLI) | payer OTHER ==
[~2019-01-09] VITALS: Ht 162.6 cm; Wt 132.6 kg
[2019-01-09 09:13] VITALS: BP 151/57
--- NOTE | 2019-01-09 09:20 | NUR ---
Pain Clinic Assessment: 1. History of Osteoarthritis: elbows hands ankles low back knees shoulders History of Rheumatoid Arthritis: NO 2. Height: 5 ft. 4 in. 162.6 cm. Weight: 292.4 lb. oz. 132.632 kg. Patient's BMI: 50.2 3. Vital Signs: BP: 151/57 Pulse: 94 Resp: 20 Temp: 02 Sat: 97 ECG Mon: 4. Pain Intensity: 2 5. Fall Risk: Dizziness: N Needs help standing or walking: N Fallen in the last 3 months: N Fall risk comments: 6. Patient on Blood Thinner: None 7. History of Hypertension: Y 8. Opioid Therapy greater than 6 weeks: Y Opiate Contract Signed: 04/15/16 9. Risk Assessment Tool Provided: LOW RISK 1 10. Functional Assessment Tool: 11. Recreational Drug Use: Never Drug Type: Tobacco Use: Never Smoker Tobacco Type: Amount or Packs/day: How Many Years: Alcohol Use: No Frequency: Quant:
--- NOTE | 2019-01-10 08:26 | HPC ---
[facility] [place] [place] [address] PAIN MANAGEMENT CONSULTATION Name: BERNARD MONACO Room #: REG [facility]..#: [id number] Admission: 01/09/19 Attend Phys: Rhianna Perla Discharge: Date of : 62 Report #: [id number] THIS REPORT FOR: //name// CC: Rhianna Cross MD DATE OF SERVICE: 01/09/2019 CHIEF COMPLAINT: Bilateral lower extremity pain, chronic low back pain, bilateral knee pain. HISTORY OF PRESENT ILLNESS: This is a very pleasant 58-year-old female who is a class 3 morbidly obese female who returns to the pain clinic for her ongoing medications that she uses to help treat her low back, bilateral shoulder and bilateral knee pain. She reports a pain score of 2/10 today. She tells me that it was an adjustment at first with her decrease of Hysingla from 40 mg to 30, but she feels that she has adjusted quite well now and does use heat and ice occasionally for increased pain, but feels overall she is doing quite well. She has an achy tenderness in her joints and back that is worse with standing and walking and especially weather changes. The medication as well as the heat and ice are beneficial. The patient has decreased her weight by 11 pounds since we last saw her. She continues to walk in stores or outside if the weather is appropriate or at school in the halls. She continues to try to decrease her weight. She reports that after walking she does feel much better. Her back does not hurt as much after she has exercised. She denies any problems with daytime sleepiness or constipation. ALLERGIES: SULFA. CURRENT LIST OF MEDICATIONS: Tizanidine 2 mg 1 in the morning and 2 at night, tramadol 50 mg p.r.n., Hysingla 30 mg daily, Zoloft 25 mg daily, Protonix 40 mg b.i.d., Ambien 5 mg p.r.n., Symbicort daily, Glucophage 250 mg daily, Lyrica 150 mg b.i.d., Lipitor 40 mg daily, Zestril 20 mg daily, clonazepam 0.5 mg 4 times a day p.r.n. PQRS: 1. She does have arthritic changes in her knees, ankles, shoulders and hands. Denies any rheumatoid arthritis. 2. Height is 5 feet 4 inches, weight is 292, BMI is 50. 3. Vital signs 151/57, pulse is 94, respirations 20, oxygen sat is 97. 4. Pain score is 2/10. 5. Denies dizziness, does not need help walking or standing, [place] [address] PAIN MANAGEMENT CONSULTATION Name: BERNARD MONACO Room #: REG [facility]#: [id number] Admission: 01/09/19 Attend Phys: Rhianna Perla Discharge: Date of : 62 Report #: [id number] the last 3 months. 6. The patient is not on blood thinners, but does take medicine for hypertension. 7. Opioid therapy is greater than 6 weeks; therefore, an opioid signed contract is on the chart. Risk assessment tool is low. Functional assessment is 25/70. 8. Recreational drug use, she denies. She is not a smoker and does not drink alcohol. According to the prescription monitoring system, the patient is filling her medications appropriately and is due for those today. She does safeguard her medicines at all times and there is a recent drug screen that is appropriate on the chart as well. PHYSICAL EXAMINATION: GENERAL: This is a well-developed, well-hydrated, class 3, morbidly obese female who appears her stated age, placing her current pain score 2/10. HEENT: Normocephalic, atraumatic. Pupils equal, round and reactive to light. Mucous membranes are moist. EXTREMITIES: No clubbing, no cyanosis, 1+ edema in her bilateral lower extremities. MUSCULOSKELETAL: Walking and standing increase her bilateral knee pain. She has discomfort in her bilateral shoulders with movement as well. Upper extremity strength judged to be 5/5 in all major muscle groups. She has palpable tenderness on the lumbar spine in her paraspinal musculature. She walks with a slightly antalgic gait. ASSESSMENT: 1. Spinal stenosis of lumbar spine. 2. Lumbar radiculopathy. 3. Lumbosacral spondylosis with radiculopathy. 4. Osteoarthritis, bilateral shoulders. 5. Osteoarthritis of the bilateral knees, status post total knee arthroplasty. 6. Severe morbid obesity, continuing weight loss program. 7. Complex medical management under terms of written opioid agreement. We reviewed the fact that opiate medications are being used to provide analgesia adequate to support activities of daily living, not attempting to achieve a specific pain score on the 0-10 Visual Analog Scale. The current opiate medications are providing sufficient analgesia to allow the patient to participate in activities of daily living. The patient is not exhibiting any aberrant behavior suggestive of drug diversion. The patient is not having any adverse reactions to medications. The patient is not suffering from daytime somnolence or mental acuity changes. The patient is managing opiate-induced constipation with appropriate sefh-cuq-cozwqyu agents and dietary considerations. The patient was counseled on concern for caution with operating a motor vehicle while using opiate medications. [address] [place] [address] PAIN MANAGEMENT CONSULTATION Name: BERNARD MONACO Room #: REG [facility].#: [id number] Admission: 01/09/19 Attend Phys: Rhianna GONZALES Minda Discharge: Date of : 62 Report #: [id number] A physical exam was performed and the patient's functional status was evaluated. All patients with back pain were advised against the bed rest greater than 4 days and were advised to return to normal activities. Pain score assessment was noted and the treatment plan was reviewed with the patient. All current medications, both prescribed and OTC were reviewed and reconciled on the electronic medical record. Tobacco screening was accomplished and smoking cessation was advised when indicated. BMI was noted and diet/exercise modification was recommended for all patients following outside normal parameters. I reviewed with the patient today their responsibilities to safeguard prescription medications, reviewed their responsibility to utilize medications only as prescribed by the physician. They are to seek and receive pain medications only from 1 physician group ([facility]). They are to use 1 pharmacy and keep the clinic informed if they change pharmacies. Their responsibilities include making followup visits in a timely fashion and to avoid abrupt discontinuation of medication usage. Their responsibilities further include bringing their medications (bottles from the pharmacy with residual pills) to the visit for possible confirmation of pill counts and the patient understands it is their responsibility to submit to random drug screens to ensure both that the medications prescribed are present, and that no other controlled substances are present. All prescriptions provided today were generated electronically. PLAN: 1. We discussed treatment options with the patient today. The patient has been able to decrease her Hysingla medication without significant difficulty, rating her pain at 2/10 today with her Hysingla daily as well as occasional tramadol according to the CDC guidelines, this places her at 50 morphine mEq. 2. Scripts given today for Hysingla 30 mg once a day, #30, for today and 4-week release and tramadol 50 mg #100, with one additional refill, tizanidine 2 mg was also given for a total of 90 pills with one additional refill. 3. We encouraged the patient on her exercise program. We understand that during the winter time it is harder to get out and walk, but encouraged her to walk at school after the end of the day. This will also help relieve some of her stress and anxiety that she feels with some of her parents and hopefully also then she will be able to decrease her Ativan use slightly. The patient verbalizes understanding that that would be a good way to decrease some of her stress prior to leaving work for the day. 4. The patient will follow up in 2 months. The patient is seen in collaboration with Dr. Tera Varner today. <ELECTRONICALLY SIGNED> By: Rhianna Perla 01/10/19 0826 1106 [id number] Rhianna Perla /nt
== END ==
LOC: PAIN 06:43
DX: M48.061 Spinal stenosis, lumbar region without neurogenic claudication (principal); M51.16 Intervertebral disc disorders with radiculopathy, lumbar region; M25.561 Pain in right knee; M25.562 Pain in left knee; Z88.2 Allergy status to sulfonamides; M19.012 Primary osteoarthritis, left shoulder; M19.011 Primary osteoarthritis, right shoulder; M17.0 Bilateral primary osteoarthritis of knee; E66.9 Obesity, unspecified; Z79.899 Other long term (current) drug therapy; Z79.891 Long term (current) use of opiate analgesic

== ENCOUNTER → 2019-03-07 | Outpatient (CLI) | payer OTHER ==
[~2019-03-07] VITALS: Ht 162.6 cm; Wt 133.4 kg
[2019-03-07 08:38] VITALS: BP 186/81
--- NOTE | 2019-03-07 08:48 | NUR ---
Pain Clinic Assessment: 1. History of Osteoarthritis: elbows hands ankles low back knees shoulders History of Rheumatoid Arthritis: NO 2. Height: 5 ft. 4 in. 162.6 cm. Weight: 294.2 lb. oz. 133.449 kg. Patient's BMI: 50.5 3. Vital Signs: BP: 186/81 Pulse: 82 Resp: 20 Temp: 02 Sat: 97 ECG Mon: 4. Pain Intensity: 2-3 5. Fall Risk: Dizziness: Needs help standing or walking: Fallen in the last 3 months: Fall risk comments: 6. Patient on Blood Thinner: None 7. History of Hypertension: Y 8. Opioid Therapy greater than 6 weeks: Y Opiate Contract Signed: 04/15/16 9. Risk Assessment Tool Provided: LOW RISK 1 10. Functional Assessment Tool: 11. Recreational Drug Use: Never Drug Type: Tobacco Use: Never Smoker Tobacco Type: Amount or Packs/day: How Many Years: Alcohol Use: No Frequency: Quant:
--- NOTE | 2019-03-08 09:25 | HPC ---
[facility] [place] [address] PAIN MANAGEMENT CONSULTATION Name: BERNARD MONACO Room #: REG [facility] MConrad.#: [id number] Admission: 03/07/19 Attend Phys: Rhianna Perla Discharge: Date of : 62 Report #: [id number] THIS REPORT FOR: //name// CC: Rhianna Cross MD DATE OF SERVICE: 03/07/2019 CHIEF COMPLAINT: Bilateral lower extremity pain, chronic back pain, bilateral knee pain. HISTORY OF PRESENT ILLNESS: This is a 59-year-old female who returns to the pain clinic today for refill of her Hysingla. She reports that we have decreased her in the last visit. The first month, she did have significant increase in pain, but she feels that her body has adjusted to her new dose, rating her pain score today at 2/3. She says she still has her ongoing aches and pains in her bilateral shoulders, knees and hands as well as her low back, but feels that she has stabilized with her new dose of medications that she does continue to take occasional tramadol as needed for breakthrough pain. Today, her pain score is 2-3. The patient is reporting that she has been quite depressed. She has been seeing a counselor, but is wondering about names for [employer] counselors to see. She has been having some ongoing issues with her son. He is in the hospital with some health issues have some family dynamics where the does not want them to have anything to do with him and this has been a difficult time for her. She is seeing her primary care doctor this afternoon to discuss these issues as well. ALLERGIES: SULFA. CURRENT LIST OF MEDICATIONS: Tramadol 50 mg p.r.n., Hysingla ER 30 mg daily, tizanidine 1 in the morning and 2 at night, albuterol, Zoloft 25 mg, Protonix, Ambien, Symbicort, Glucophage, Lyrica, Lipitor, Zestril, and clonazepam. PQRS: 1. The patient has osteoarthritis in multiple joints and denies any rheumatoid arthritis. 2. Height is 5 feet 4 inches, weight is 294, BMI is 50. 3. Vital signs 186/81, pulse is 82, respirations 20, oxygen sat is 97. 4. Pain score 2-3. 5. Denies dizziness, does not need help walking or standing, has not fallen in the last 3 months. 6. The patient is not on any blood thinners, [place] [address] PAIN MANAGEMENT CONSULTATION Name: BERNARD MONACO Room #: REG [facility]..#: [id number] Admission: 03/07/19 Attend Phys: Rhianna Perla Discharge: Date of : 62 Report #: [id number] hypertension. Her opioid therapy is greater than 6 weeks; therefore, an opioid signed contract is on the chart. Risk assessment tool is low. Functional assessment is 25/70. 7. Recreational drug use, she denies. She is not a smoker and does not drink alcohol. According to the prescription monitoring system, the patient is filling appropriately for her medicines. She is due to fill those later this week. According to the CDC guidelines, her morphine mEq per day would be 50 MME. PHYSICAL EXAMINATION: GENERAL: This is a well-developed, well-hydrated, class 3, morbidly obese female who appears her stated age, slightly depressed today, placing her current pain score at 2-3. HEENT: Normocephalic, atraumatic. Pupils equal, round and reactive to light. EXTREMITIES: No clubbing, no cyanosis. She has 1+ edema in her right lower extremity. MUSCULOSKELETAL: Walks with a slightly antalgic gait, standing and walking, also increases her knee pain. She has tenderness that is across her lumbosacral spine in her paraspinal musculature. Her lower extremity strength judged to be 5/5, though deconditioned. ASSESSMENT: 1. Spinal stenosis of lumbar spine. 2. Lumbar radiculopathy. 3. Lumbosacral spondylosis with radiculopathy. 4. Osteoarthritis of bilateral shoulders. 5. Osteoarthritis, bilateral knees, status post knee arthroplasty. 6. Severe morbid obesity, continuing weight loss program and exercise. 7. Complex medical management under terms of written opioid agreement. 8. Depression. We reviewed the fact that opiate medications are being used to provide analgesia adequate to support activities of daily living, not attempting to achieve a specific pain score on the 0-10 Visual Analog Scale. The current opiate medications are providing sufficient analgesia to allow the patient to participate in activities of daily living. The patient is not exhibiting any aberrant behavior suggestive of drug diversion. The patient is not having any adverse reactions to medications. The patient is not suffering from daytime somnolence or mental acuity changes. The patient is managing opiate-induced constipation with appropriate nybp-dma-dcqangn agents and dietary considerations. The patient was counseled on concern for caution with operating a motor vehicle while using opiate medications. A physical exam was performed and the patient's functional status was evaluated. All patients with back pain were advised against the bed rest greater than 4 [facility] [address] [place] [address] PAIN MANAGEMENT CONSULTATION Name: BERNARD MONACO Room #: REG [facility]#: [id number] Admission: 03/07/19 Attend Phys: Rhianna Perla Discharge: Date of : 62 Report #: [id number] days and were advised to return to normal activities. Pain score assessment was noted and the treatment plan was reviewed with the patient. All current medications, both prescribed and OTC were reviewed and reconciled on the electronic medical record. Tobacco screening was accomplished and smoking cessation was advised when indicated. BMI was noted and diet/exercise modification was recommended for all patients following outside normal parameters. I reviewed with the patient today their responsibilities to safeguard prescription medications, reviewed their responsibility to utilize medications only as prescribed by the physician. They are to seek and receive pain medications only from 1 physician group ( [facility]). They are to use 1 pharmacy and keep the clinic informed if they change pharmacies. Their responsibilities include making followup visits in a timely fashion and to avoid abrupt discontinuation of medication usage. Their responsibilities further include bringing their medications (bottles from the pharmacy with residual pills) to the visit for possible confirmation of pill counts and the patient understands it is their responsibility to submit to random drug screens to ensure both that the medications prescribed are present, and that no other controlled substances are present. All prescriptions provided today were generated electronically. PLAN: 1. We discussed treatment options with the patient today. The patient reports some family issues that is causing her increased depression. She has been seeing a counselor. We will give her a name for a [employer] counselor today that she has requested as well. I discussed that she is only on 25 mg of Zoloft. She is seeing her nurse practitioner at her primary care office today. I encouraged her to discuss possibly increasing that dose to see if that may help with some of her depression. The patient verbalizes understanding. 2. The patient has not been as faithful to her weight loss and exercise program as she had been prior to her last visit. The patient is hopeful once she gets over this depression and issues with her family. She will be able to concentrate more on herself and work on her weight loss program again. 3. The patient reports that she is transitioned to her lower dose of Hysingla started in the second dose of this medication. She feels the first month was fairly rest with increased pain, but feels like it is stabilized. We will continue her Hysingla 30 mg, #30 and will e-prescribe this by Dr. Tera Varner to her pharmacy for 2 months. We will continue her tramadol 50, #100 with one additional refill as well. 4. We will continue her try tizanidine 2 mg 1 in the morning and 2 at night, quantity 90 with one additional refill. The patient is seen today in [address] [address] PAIN MANAGEMENT CONSULTATION Name: BERNARD MONACO Room #: REG [facility]#: [id number] Admission: 03/07/19 Attend Phys: Rhianna Perla Discharge: Date of : 62 Report #: [id number] Tera Varner. The patient will call for an appointment as needed. <ELECTRONICALLY SIGNED> By: Rhianna Perla 03/08/19 0925 [id number] [id number] Rhianna Perla /nt
== END ==
LOC: PAIN 06:42
DX: M47.27 Other spondylosis with radiculopathy, lumbosacral region (principal); M48.061 Spinal stenosis, lumbar region without neurogenic claudication; M19.012 Primary osteoarthritis, left shoulder; M19.011 Primary osteoarthritis, right shoulder; M17.0 Bilateral primary osteoarthritis of knee; F32.9 Major depressive disorder, single episode, unspecified; Z79.891 Long term (current) use of opiate analgesic

== ENCOUNTER → 2019-05-01 | Outpatient (CLI) | payer OTHER ==
[~2019-05-01] VITALS: Ht 162.6 cm; Wt 131.5 kg
[2019-05-01 09:59] VITALS: BP 123/70
--- NOTE | 2019-05-01 10:14 | NUR ---
Pain Clinic Assessment: 1. History of Osteoarthritis: elbows hands ankles low back knees shoulders History of Rheumatoid Arthritis: NO 2. Height: 5 ft. 4 in. 162.6 cm. Weight: 290.0 lb. oz. 131.544 kg. Patient's BMI: 49.8 3. Vital Signs: BP: 123/70 Pulse: 75 Resp: 22 Temp: 02 Sat: 97 ECG Mon: 4. Pain Intensity: 4 5. Fall Risk: Dizziness: N Needs help standing or walking: N Fallen in the last 3 months: N Fall risk comments: 6. Patient on Blood Thinner: None 7. History of Hypertension: Y 8. Opioid Therapy greater than 6 weeks: Y Opiate Contract Signed: 04/15/16 9. Risk Assessment Tool Provided: LOW RISK 1 10. Functional Assessment Tool: 11. Recreational Drug Use: Never Drug Type: Tobacco Use: Never Smoker Tobacco Type: Amount or Packs/day: How Many Years: Alcohol Use: No Frequency: Quant:
--- NOTE | 2019-05-03 08:45 | HPC ---
[facility] [address] [place] [address] PAIN MANAGEMENT CONSULTATION Name: BERNARD MONACO Room #: REG [facility] M..#: [id number] Admission: 05/01/19 Attend Phys: Rhianna Perla Discharge: Date of : 62 Report #: [id number] THIS REPORT FOR: cc: Deirdre Cross MD,Deirdre Perla,Rhianna GONZALES ~ DATE OF SERVICE: 05/01/2019 CHIEF COMPLAINT: Bilateral lower extremity pain, chronic back pain, bilateral knee pain. HISTORY OF PRESENT ILLNESS: This is a 59-year-old female who returns to the pain clinic today for refill of her Hysingla and tramadol. She states that it has been a difficult couple of months due to increased pain and fatigue. She feels that the weather has played a major part in this, but she reports she has been aching all over in her joints in her shoulders. She also continues to have low back pain. This is an aching, sharp pain, rating her pain score 4/10 today, worse with standing, walking, weather changes. She feels that the medication has been beneficial, though she reports she at times was tempted to take extra tramadol due to her increased pain. She did take some Tylenol Arthritis 2 tablets daily to help get her through the rough period over the last month. The patient had been trying to exercise more and lose weight according to our records, thus she has lost 4 additional pounds from the last time we saw her 2 months ago. The patient was very excited about this since she had not been filling up to exercising as much as she had in the past. ALLERGIES: SULFA. CURRENT LIST OF MEDICATIONS: Tramadol 50 mg p.r.n., Hysingla 30 mg daily, ProAir, Zoloft, Protonix, Ambien, Symbicort, Glucophage, Lyrica, Lipitor, lisinopril, clonazepam. PATIENT PQRS: 1. The patient has osteoarthritis in multiple joints as well. Denies any rheumatoid arthritis. 2. Height is 5 feet 4 inches, weight is 290, BMI is 49. 3. Vital signs 123/70, pulse is 75, respirations 22, oxygen sat is 97. 4. Pain score is 4/10. 5. Denies dizziness, does not need help walking or standing, has not fallen in the last 3 months. 6. The patient is not on any blood thinners, but does take medicine for hypertension. Opioid therapy is greater than 6 weeks; therefore, an opioid signed contract is on the chart. Risk assessment tool is low. [place] [address] PAIN MANAGEMENT CONSULTATION Name: BERNARD MONACO Room #: REG [facility] Pastora.#: [id number] Admission: 05/01/19 Attend Phys: Rhianna Perla Discharge: Date of : 62 Report #: [id number] 7. Recreational drug use, she denies. She is not a smoker and does not drink alcohol. According to the prescription monitoring system, the patient is filling appropriately, filling her meds in a timely manner at [facility]. According to the CDC guidelines, her morphine mEq is 50 MMEs per day. PHYSICAL EXAMINATION: GENERAL: This is alert and orientated, well-hydrated, class 3, morbidly obese female who appears her stated age, placing her current pain score at 4/10. HEENT: Normocephalic, atraumatic. Extraocular eye muscles are intact. Mucous membranes are moist. EXTREMITIES: No clubbing, no cyanosis. She has 1+ edema in her lower right extremity. MUSCULOSKELETAL: The patient has tenderness in her lumbosacral region as well as in her knees and shoulders. Diffuse tenderness. Her lower extremity strength judged to be 5/5, though deconditioned. She has a slightly antalgic gait. Pain is increased with ambulation. ASSESSMENT: 1. Spinal stenosis of lumbar spine. 2. Lumbar radiculopathy. 3. Lumbosacral spondylosis with radiculopathy. 4. Osteoarthritis involving multiple joints of knees and shoulders. 5. Osteoarthritis, bilateral knees, status post knee arthroplasty. 6. Severe morbidly obesity, continuing weight loss program. 7. Complex medical management under terms of written opioid agreement. We reviewed the fact that opiate medications are being used to provide analgesia adequate to support activities of daily living, not attempting to achieve a specific pain score on the 0-10 Visual Analog Scale. The current opiate medications are providing sufficient analgesia to allow the patient to participate in activities of daily living. The patient is not exhibiting any aberrant behavior suggestive of drug diversion. The patient is not having any adverse reactions to medications. The patient is not suffering from daytime somnolence or mental acuity changes. The patient is managing opiate-induced constipation with appropriate uoax-ers-ybbfaum agents and dietary considerations. The patient was counseled on concern for caution with operating a motor vehicle while using opiate medications. PLAN: 1. We discussed treatment options with the patient today. The patient feels that her pain was increased significantly over the last month, unsure if it was weather changes. She did not run out of medications. She was able to manage it by taking some Extra Strength Tylenol as well as taking her tramadol and adjusting the times. [address] [address] PAIN MANAGEMENT CONSULTATION Name: BERNARD MONACO Room #: REG [facility]..#: [id number] Admission: 05/01/19 Attend Phys: Rhianna Perla Discharge: Date of : 62 Report #: [id number] 2. We will refill her Hysingla 30 mg once a day for today for an 8-week release as well as her tramadol 50 mg, #100 for 2 additional months. These will be sent electronically by Dr. Tera Varner. 3. I will refill her tizanidine 2 mg, #90 with one additional refill. The patient finds this beneficial in helping some of her muscle spasms. 4. The patient will return in 3 months for a refill of her medications. The patient is seen today in collaboration with Dr. Tera Varner. <ELECTRONICALLY SIGNED> By: Rhianna Perla 05/03/19 0845 1108 [id number] Rhianna Perla /nt
== END ==
LOC: PAIN 09:38
DX: M47.27 Other spondylosis with radiculopathy, lumbosacral region (principal); M17.0 Bilateral primary osteoarthritis of knee; M19.012 Primary osteoarthritis, left shoulder; M19.011 Primary osteoarthritis, right shoulder; M48.061 Spinal stenosis, lumbar region without neurogenic claudication; E66.01 Morbid (severe) obesity due to excess calories; F11.20 Opioid dependence, uncomplicated; Z96.659 Presence of unspecified artificial knee joint; Z88.2 Allergy status to sulfonamides; Z79.01 Long term (current) use of anticoagulants; Z79.899 Other long term (current) drug therapy

== ENCOUNTER → 2019-07-18 | Outpatient (CLI) | payer OTHER ==
[~2019-07-18] VITALS: Ht 162.6 cm; Wt 134.3 kg
[2019-07-18 14:35] VITALS: BP 150/82
--- NOTE | 2019-07-18 14:50 | NUR ---
Pain Clinic Assessment: 1. History of Osteoarthritis: elbows hands ankles low back knees shoulders History of Rheumatoid Arthritis: NO 2. Height: 5 ft. 4 in. 162.6 cm. Weight: 296.0 lb. oz. 134.265 kg. Patient's BMI: 50.8 3. Vital Signs: BP: 150/82 Pulse: 91 Resp: 20 Temp: 02 Sat: 98 ECG Mon: 4. Pain Intensity: 2 5. Fall Risk: Dizziness: N Needs help standing or walking: N Fallen in the last 3 months: N Fall risk comments: 6. Patient on Blood Thinner: None 7. History of Hypertension: Y 8. Opioid Therapy greater than 6 weeks: Y Opiate Contract Signed: 04/15/16 9. Risk Assessment Tool Provided: LOW RISK 1 10. Functional Assessment Tool: 11. Recreational Drug Use: Never Drug Type: Tobacco Use: Never Smoker Tobacco Type: Amount or Packs/day: How Many Years: Alcohol Use: No Frequency: Quant:
--- NOTE | 2019-07-19 07:31 | HPC ---
[facility] [address] [place] [address] PAIN MANAGEMENT CONSULTATION Name: BERNARD MONACO Room #: REG [facility] M..#: [id number] Admission: 07/18/19 Attend Phys: Rhianna Perla Discharge: Date of : 62 Report #: [id number] THIS REPORT FOR: cc: Deirdre Cross MD,Deirdre Perla,Rhianna GONZALES ~ CC: Tera Varner DO DATE OF SERVICE: 07/18/2019 CHIEF COMPLAINT: Bilateral lower extremity pain, chronic low back pain, bilateral knee pain. HISTORY OF PRESENT ILLNESS: As you know, this is a very pleasant 59-year-old female who returns to the pain clinic today for refill of her opioid medications. She uses this to help her ongoing low back pain. She also suffers from fibromyalgia and the medicines are very beneficial in helping with this. She feels that her pain is a 2/10 today, very well controlled on her current regimen. She continues to have low back pain and her shoulders are hurting today as well. She reports in the weather changes her pain is increased as well as significant walking and standing. She has been home throughout this COVID virus,she does work for a school. She feels that has also been beneficial, not been as active with her job since she has been able to sit at home and this has decreased her pain. The patient reports that she does use occasional heat and ice as well and denies any problems with overmedicated feeling or constipation. ALLERGIES: SULFA. CURRENT LIST OF MEDICATIONS: Tramadol 50 mg p.r.n., Hysingla 30 mg daily, tizanidine 2 mg p.r.n., Zoloft, Protonix, Ambien, Symbicort, Glucophage, Lyrica, Lipitor, Zestril, and clonazepam. PQRS: 1. She has osteoarthritis in multiple joints. Denies any rheumatoid arthritis. 2. Height is 5 feet 4 inches, weight is 296, BMI is 50. Vital signs 150/82, pulse is 91, respirations 20, oxygen sat is 98. 3. Pain score is 2/10. 4. Denies dizziness, does not need help walking or standing, has not fallen in the last 3 months. 5. The patient is not on any blood thinners. She does take medicines for hypertension. 6. Opioid therapy is greater than 6 weeks; therefore, an opioid signed contract is on the chart. Risk assessment is low. Functional assessment is 22/70. 7. Recreational drug use, she denies. She is not a smoker [place] [address] PAIN MANAGEMENT CONSULTATION Name: BERNARD MONACO Room #: REG [facility].#: [id number] Admission: 07/18/19 Attend Phys: Rhianna Perla Discharge: Date of : 62 Report #: [id number] According to the prescription monitoring system, the patient is filling appropriately. She is due to fill her medications next week. According to the CDC guidelines, her morphine mEq is 50 MMEs. There is an opioid drug screen on the chart that is appropriate as well. PHYSICAL EXAMINATION: GENERAL: This is a well-developed, well-hydrated, class 3, morbidly obese female who is rating her pain score at 2/10 today. She is alert and orientated, placing her pain score at 2/10 today. She is a good historian. HEENT: Normocephalic, atraumatic. Pupils equal, round and reactive to light. She is wearing a mask. EXTREMITIES: No clubbing, no cyanosis with 1+ edema in her lower extremities. MUSCULOSKELETAL: She has an antalgic gait. She has tenderness in her bilateral knees that is increased with ambulation. There is pain in her lumbosacral region of her paramuscular spine as well. Her lower extremity strength judged to be 5/5 in all major muscle groups although she is slightly deconditioned. ASSESSMENT: 1. Spinal stenosis of the lumbar spine. 2. Lumbar radiculopathy. 3. Lumbosacral spondylosis with radiculopathy. 4. Osteoarthritis of the knees, status post knee arthroplasty. 5. Osteoarthritis of bilateral shoulders. 6. Fibromyalgia. 7. Severe morbid obesity. Encouraged continued weight loss. 8. Complex medical management under terms of written opioid agreement and depression. We reviewed the fact that opiate medications are being used to provide analgesia adequate to support activities of daily living, not attempting to achieve a specific pain score on the 0-10 Visual Analog Scale. The current opiate medications are providing sufficient analgesia to allow the patient to participate in activities of daily living. The patient is not exhibiting any aberrant behavior suggestive of drug diversion. The patient is not having any adverse reactions to medications. The patient is not suffering from daytime somnolence or mental acuity changes. The patient is managing opiate-induced constipation with appropriate apun-dzd-cphdtou agents and dietary considerations. The patient was counseled on concern for caution with operating a motor vehicle while using opiate medications. PLAN: 1. We discussed treatment options with the patient today. The patient finds the medications very beneficial, would like to continue on her current regimen. She will have a hydrocodone ER 30 mg, #[address] Tera Varner for today, 4-week and 8 week supply as well as tramadol 50 mg #[address] [address] PAIN MANAGEMENT CONSULTATION Name: BERNARD MONACO Room #: REG [facility] M..#: [id number] Admission: 07/18/19 Attend Phys: Rhianna Perla Discharge: Date of : 62 Report #: [id number] 2 refills, sent electronically. We will send tizanidine 2 mg #90 with 2 additional refills sent to her pharmacy as well. 2. The patient encouraged to be as active as possible to continue her weight loss program. She had been decreasing her weight slowly, but effectively. Today, her weight has increased 6 pounds since her last visit. We attribute this to be not as active at home during this COVID outbreak and encouraged her to try to exercise. 3. The patient is seen in collaboration with Dr. Tera Varner. <ELECTRONICALLY SIGNED> By: Rhianna Perla 07/19/19 0731 [id number] [id number] Rhianna Perla /leonor
== END ==
LOC: PAIN 07:10
DX: M47.27 Other spondylosis with radiculopathy, lumbosacral region (principal); G89.29 Other chronic pain; E66.01 Morbid (severe) obesity due to excess calories; Z79.891 Long term (current) use of opiate analgesic

== ENCOUNTER → 2019-10-03 | Outpatient (CLI) | payer OTHER ==
[~2019-10-03] VITALS: Ht 162.6 cm; Wt 135.6 kg
[2019-10-03 12:31] VITALS: BP 149/79
--- NOTE | 2019-10-03 12:36 | NUR ---
Pain Clinic Assessment: 1. History of Osteoarthritis: elbows hands ankles low back knees shoulders History of Rheumatoid Arthritis: NO 2. Height: 5 ft. 4 in. 162.6 cm. Weight: 299.0 lb. oz. 135.626 kg. Patient's BMI: 51.3 3. Vital Signs: BP: 149/79 Pulse: 80 Resp: 18 Temp: 02 Sat: 97 ECG Mon: 4. Pain Intensity: 4-5 5. Fall Risk: Dizziness: N Needs help standing or walking: N Fallen in the last 3 months: N Fall risk comments: 6. Patient on Blood Thinner: None 7. History of Hypertension: Y 8. Opioid Therapy greater than 6 weeks: Y Opiate Contract Signed: 04/15/16 9. Risk Assessment Tool Provided: LOW RISK 1 10. Functional Assessment Tool: 11. Recreational Drug Use: Never Drug Type: Tobacco Use: Never Smoker Tobacco Type: Amount or Packs/day: How Many Years: Alcohol Use: No Frequency: Quant:
--- NOTE | 2019-10-04 08:58 | HPC ---
[facility] [address] [place] [address] PAIN MANAGEMENT CONSULTATION Name: BERNARD MONACO Room #: REG [facility] M..#: [id number] Admission: 10/03/19 Attend Phys: Rhianna Perla Discharge: Date of : 62 Report #: [id number] THIS REPORT FOR: cc: Deirdre Cross MD,Deirdre Perla,Rhianna GONZALES ~ CC: Tera Varner DO DATE OF SERVICE: 10/03/2019 CHIEF COMPLAINT: Bilateral lower extremity pain, low back pain and bilateral knee pain. HISTORY OF PRESENT ILLNESS: This is a pleasant 59-year-old who returns to the clinic today for a refill of her medications. Today, she is complaining of mostly low back pain that does radiate into her legs. She reports her pain score 4-5. It is worse with weather changes and standing and walking. She does have fibromyalgia, which aids in her pain and discomfort. She reports that the medications we prescribed are very beneficial as well as utilizing heat and ice especially to her lower back. She uses a cane at all times when she does walk. The patient states she is getting ready to retire at the end of the year, so she has been seeing numerous doctors in anticipation of transferring to her 's insurance plan. She was recently diagnosed with lymphedema in her lower extremities and utilizes lymphedema pumps. She finds those are beneficial. Her legs are still edematous, but they have decreased some since she has just started using these pumps. The patient does report she had an echocardiogram that was negative and she is going to see a vein specialist, Dr. Nicholson for evaluation as well. She is to return to work. 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 She believes that with her health issues, this is the best option at least in her mind, to prevent any COVID outbreak that she is worried about when she is working these last few months. ALLERGIES: SULFA. CURRENT LIST OF MEDICATIONS: Tramadol 50 mg p.r.n., tizanidine 2 mg, Hysingla 30 mg daily, albuterol, Zoloft, Protonix, Ambien, Symbicort, Glucophage, Lyrica, Lipitor, Zestril, and clonazepam. PQRS: 1. She has osteoarthritic changes in her elbows, hands, ankles backs and knees, which is diffuse. She denies any rheumatoid arthritis. 2. Height is 5 feet 4 inches, weight is 299, BMI is 51. 3. Vital signs 149/79, pulse is 80, respirations 18, oxygen sat is 97%. 4. Pain score is 4-5. 5. Denies dizziness, does not need help walking or standing, [place] [address] PAIN MANAGEMENT CONSULTATION Name: BERNARD MONACO Room #: REG [facility]#: [id number] Admission: 10/03/19 Attend Phys: Rhianna Perla Discharge: Date of : 62 Report #: [id number] the last 3 months. 6. The patient is not on any blood thinners, but does take medicine for hypertension. 7. Her opioid therapy is greater than 6 weeks. We will have her resign her opioid contract today and has been several years. 8. Risk assessment tool is low. Functional assessment is 22/70. 9. Recreational drug use, she denies. She is not a smoker and does not drink alcohol. According to the prescription monitoring system, she had not filled her medication since 08/18/2019 for her Hysingla. She is unsure why there was a gap, but she feels like she must have had several at home. She is just out of her medications. Her morphine mEq according to the CDC guidelines is 50. PHYSICAL EXAMINATION: GENERAL: This is a well-developed, well-hydrated, class 3, morbidly obese female who is rating her pain score today at 4/10. She is alert and orientated and a good historian. HEENT: Normocephalic, atraumatic. Pupils equal, round and reactive to light. She is wearing a mask and her speech is fluent. EXTREMITIES: No clubbing, no cyanosis, 1+ edema in her lower extremities. Slight red in color, especially on the left greater than the right. MUSCULOSKELETAL: She has an antalgic gait. Complains of tenderness across the lumbosacral region today with several trigger points noted. She does have myofascial pain and fibromyalgia. Her lower extremity strength judged to be symmetrical and slightly deconditioned. ASSESSMENT: 1. Spinal stenosis of the lumbar spine. 2. Lumbar radiculopathy. 3. Lumbosacral spondylosis with radiculopathy. 4. Osteoarthritis of the knees and shoulders with status post knee arthroplasty. 5. Fibromyalgia. 6. Severe morbid obesity. 7. Complex medical management under terms of written opioid agreement. We reviewed the fact that opiate medications are being used to provide analgesia adequate to support activities of daily living, not attempting to achieve a specific pain score on the 0-10 Visual Analog Scale. The current opiate medications are providing sufficient analgesia to allow the patient to participate in activities of daily living. The patient is not exhibiting any aberrant behavior suggestive of drug diversion. The patient is not having any adverse reactions to medications. The patient is not suffering from daytime somnolence or mental acuity changes. The patient is managing opiate-induced constipation with appropriate uyzk-ecz-dcefbws agents and dietary [facility] [address] [place] [address] PAIN MANAGEMENT CONSULTATION Name: BERNARD MONACO Room #: REG [facility].#: [id number] Admission: 10/03/19 Attend Phys: Rhianna Perla Discharge: Date of : 62 Report #: [id number] considerations. The patient was counseled on concern for caution with operating a motor vehicle while using opiate medications. A physical exam was performed and the patient's functional status was evaluated. All patients with back pain were advised against the bed rest greater than 4 days and were advised to return to normal activities. Pain score assessment was noted and the treatment plan was reviewed with the patient. All current medications, both prescribed and OTC were reviewed and reconciled on the electronic medical record. Tobacco screening was accomplished and smoking cessation was advised when indicated. BMI was noted and diet/exercise modification was recommended for all patients following outside normal parameters. I reviewed with the patient today their responsibilities to safeguard prescription medications, reviewed their responsibility to utilize medications only as prescribed by the physician. They are to seek and receive pain medications only from 1 physician group ([facility]). They are to use 1 pharmacy and keep the clinic informed if they change pharmacies. Their responsibilities include making followup visits in a timely fashion and to avoid abrupt discontinuation of medication usage. Their responsibilities further include bringing their medications (bottles from the pharmacy with residual pills) to the visit for possible confirmation of pill counts and the patient understands it is their responsibility to submit to random drug screens to ensure both that the medications prescribed are present, and that no other controlled substances are present. All prescriptions provided today were generated electronically. PLAN: 1. We discussed treatment options with the patient today. The patient feels her medications are beneficial. She is hopeful that once she does retire, she would able to decrease some of her medications. She has noticed that she has been under some stress lately with some family issues and that has had caused some increase in her pain in her lower back. She is trying to utilize massage, heat as well as her medications today. We will have Dr. Tera Varner send electronically her Hysingla ER 30 mg tablets as well as her tramadol 50 mg #100. These will be for a total of 3 months. 2. I will send tizanidine 2 mg tablets 1-2 twice a day, quantity 60 with 2 additional refills. 3. We will have the patient resign her opioid agreement with us and had been several years since this has been updated and we will recheck a urine drug screen by the end of the year on this patient. 4. The patient is seen in collaboration with Dr. Tera Varner. <ELECTRONICALLY SIGNED> By: Rhianna Perla 10/04/19 0858 1341 06 Rhianna Perla /nt
== END ==
LOC: PAIN 06:55
PROVIDERS: ATTEND Clinical Nurse Specialist Adult Health
DX: M47.27 Other spondylosis with radiculopathy, lumbosacral region (principal); M48.061 Spinal stenosis, lumbar region without neurogenic claudication; M17.0 Bilateral primary osteoarthritis of knee; M79.7 Fibromyalgia; E66.01 Morbid (severe) obesity due to excess calories; F11.20 Opioid dependence, uncomplicated; Z96.651 Presence of right artificial knee joint; Z96.652 Presence of left artificial knee joint; Z88.2 Allergy status to sulfonamides; Z79.899 Other long term (current) drug therapy

== ENCOUNTER → 2019-12-18 | Outpatient (CLI) | payer OTHER ==
[~2019-12-18] VITALS: Ht 162.6 cm; Wt 137.3 kg
[2019-12-18 08:27] VITALS: BP 157/87
--- NOTE | 2019-12-18 08:41 | NUR ---
Pain Clinic Assessment: 1. History of Osteoarthritis: elbows hands ankles low back knees shoulders History of Rheumatoid Arthritis: NO 2. Height: 5 ft. 4 in. 162.6 cm. Weight: 302.6 lb. oz. 137.259 kg. Patient's BMI: 51.9 3. Vital Signs: BP: 157/87 Pulse: 94 Resp: 20 Temp: 02 Sat: 100 ECG Mon: 4. Pain Intensity: 4 5. Fall Risk: Dizziness: N Needs help standing or walking: Y Fallen in the last 3 months: N Fall risk comments: 6. Patient on Blood Thinner: None 7. History of Hypertension: Y 8. Opioid Therapy greater than 6 weeks: Y Opiate Contract Signed: 04/15/16 9. Risk Assessment Tool Provided: LOW RISK 1 10. Functional Assessment Tool: 11. Recreational Drug Use: Never Drug Type: Tobacco Use: Never Smoker Tobacco Type: Amount or Packs/day: How Many Years: Alcohol Use: No Frequency: Quant:
--- NOTE | 2019-12-19 12:47 | HPC ---
[facility] [address] [address] PAIN MANAGEMENT CONSULTATION Name: BERNARD MONACO Room #: REG [facility]..#: [id number] Admission: 12/18/19 Attend Phys: Rhianna Perla Discharge: Date of : 62 Report #: [id number] CC: Rhianna Varner DO DATE OF SERVICE: 12/18/2019 CHIEF COMPLAINT: Bilateral lower extremity pain, low back pain and knee pain. HISTORY OF PRESENT ILLNESS: This is a pleasant 59-year-old female who returns to the pain clinic today for refill of her medications. Today, she is reporting her pain at a 4/10, mostly located in her low back and bilateral legs that is an aching pain that is constant, but occasionally sharp, worse with prolonged standing. She feels her medication as well as rest has been beneficial. She denies any daytime somnolence or constipation as a result of her medications. The patient states that she has venous insufficiency in her bilateral legs and had recently had a procedure. She reports that she is wearing compression hose at all times, but her legs already feel better and it has been 1 week. She is hopeful that her pain continues to decrease in her legs from this procedure. ALLERGIES: SULFA. CURRENT LIST OF MEDICATIONS: Tramadol 50 mg every 6 hours, tizanidine 2 mg t.i.d., Hysingla 30 mg daily, albuterol, Zoloft, Protonix, Ambien, Symbicort, Glucophage, Lyrica, Lipitor, Zestril, clonazepam. PQRS: 1. She has arthritic changes in her elbows, hands, ankles backs and knees, which is has diffuse. Denies any rheumatoid arthritis. 2. Height is 5 feet 4 inches, weight is 302, BMI is 51, blood pressure 157/87, pulse is 94, respirations 20, oxygen sat is 100%. Pain score is 4/10. 3. Fall risk. Denies dizziness. Does need assistance with a cane for ambulation, has not fallen in the last 3 months. The patient is not on any blood thinners, but does take medicine for hypertension. Opioid therapy is greater than 6 weeks; therefore, an opioid signed contract is on the chart. Risk assessment is low. Functional assessment is . 4. Recreational drug use, she denies. She is not a smoker and does not drink alcohol. According to the prescription monitoring system, the patient is due to fill her medications next week, filling them in a timely fashion. Her morphine mEq is 15 MMEs per day. PHYSICAL EXAMINATION: GENERAL: This is a well-developed, well-hydrated, class 3, morbidly obese, very pleasant female who is rating her pain score at 4/10. She is alert and orientated. HEENT: Normocephalic, atraumatic. Pupils equal, round, reactive to light. She is wearing a mask. EXTREMITIES: No clubbing, no cyanosis, but she has 1+ edema in her lower extremities with compression stockings on bilaterally, slightly reddish in color, greater on the left than the right. MUSCULOSKELETAL: She has tenderness across her lumbosacral region with various trigger points noted. She has lower extremity strength judged to be symmetrical, but deconditioned at 5/5 with an antalgic gait. Compression hose on bilaterally. ASSESSMENT: 1. Spinal stenosis of lumbar spine. 2. Lumbar radiculopathy. 3. Lumbosacral spondylosis. 4. Osteoarthritis of the knees, shoulders. 5. Morbid obesity. 6. Fibromyalgia. 7. Complex medical management under terms of written agreement. We reviewed the fact that opiate medications are being used to provide analgesia adequate to support activities of daily living, not attempting to achieve a specific pain score on the 0-10 Visual Analog Scale. The current opiate medications are providing sufficient analgesia to allow the patient to participate in activities of daily living. The patient is not exhibiting any aberrant behavior suggestive of drug diversion. The patient is not having any adverse reactions to medications. The patient is not suffering from daytime somnolence or mental acuity changes. The patient is managing opiate-induced constipation with appropriate nzaw-shk-jxfamcp agents and dietary considerations. The patient was counseled on concern for caution with operating a motor vehicle while using opiate medications. A physical exam was performed and the patient's functional status was evaluated. All patients with back pain were advised against the bed rest greater than 4 days and were advised to return to normal activities. Pain score assessment was noted and the treatment plan was reviewed with the patient. All current medications, both prescribed and OTC were reviewed and reconciled on the electronic medical record. Tobacco screening was accomplished and smoking cessation was advised when indicated. BMI was noted and diet/exercise modification was recommended for all patients following outside normal parameters. I reviewed with the patient today their responsibilities to safeguard prescription medications, reviewed their responsibility to utilize medications only as prescribed by the physician. They are to seek and receive pain medications only from 1 physician group ( [facility]). They are to use 1 pharmacy and keep the clinic informed if they change pharmacies. Their responsibilities include making followup visits in a timely fashion and to avoid abrupt discontinuation of medication usage. Their responsibilities further include bringing their medications (bottles from the pharmacy with residual pills) to the visit for possible confirmation of pill counts and the patient understands it is their responsibility to submit to random drug screens to ensure both that the medications prescribed are present, and that no other controlled substances are present. All prescriptions provided today were generated electronically. PLAN: 1. We discussed treatment options with the patient today. Patient is to retire at the end of this year. She has been trying to walk in the school. I encouraged her to find a place once she retires to continue her walking, whether it be [employer] or a mall out of the elements during the wintertime. The patient does report that prolonged walking does aggravate her back. I encouraged her to use a cart if she is at [employer], but to continue to be as active as possible. 2. The patient recently had her veins cauterized due to venous insufficiency. States that her legs are feeling better. I encouraged her once they are healed, hopefully, she will be able to decrease some of her tramadol and Lyrica. The Lyrica may be causing some of her additional lower extremity swelling. If she is able to decrease that in the future, that may be beneficial, though I know she does take that for her fibromyalgia. 3. We will refill her medications today. Dr. Tera Varner will send these electronically for her Hysingla 30 mg tablets to be released 12/25, 01/22, 02/19 as well as her tramadol 50 mg tablets, #100 with 2 additional refills. 4. I will send her tizanidine #90 with refills to her pharmacy. 5. The patient is going to be on her 's insurance coming February. Hopefully, they will be covered to come to this facility, if not, I have given the names of our other hospital doctors who do see patients at and the patient is going to look into that option prior to coming in March. The patient is seen today in collaboration with Dr. Tera Varner. <ELECTRONICALLY SIGNED> By: Rhianna Perla 12/19/19 1247 [id number] 1113 Rhianna Perla /leonor
== END ==
LOC: PAIN 06:50
PROVIDERS: ATTEND Clinical Nurse Specialist Adult Health
DX: M47.27 Other spondylosis with radiculopathy, lumbosacral region (principal); M48.061 Spinal stenosis, lumbar region without neurogenic claudication; E66.9 Obesity, unspecified; M79.7 Fibromyalgia; F11.20 Opioid dependence, uncomplicated; M17.0 Bilateral primary osteoarthritis of knee; M19.011 Primary osteoarthritis, right shoulder; M19.012 Primary osteoarthritis, left shoulder; Z88.8 Allergy status to other drugs, medicaments and biological substances; Z79.899 Other long term (current) drug therapy

== ENCOUNTER → 2020-03-19 | Outpatient (CLI) | payer OTHER ==
[~2020-03-19] VITALS: Ht 162.6 cm; Wt 130.2 kg
[2020-03-19 13:29] VITALS: BP 149/83
--- NOTE | 2020-03-19 13:32 | NUR ---
Pain Clinic Assessment: 1. History of Osteoarthritis: elbows hands ankles low back knees shoulders History of Rheumatoid Arthritis: NO 2. Height: 5 ft. 4 in. 162.6 cm. Weight: 287.0 lb. oz. 130.183 kg. Patient's BMI: 49.2 3. Vital Signs: BP: 149/83 Pulse: 90 Resp: 16 Temp: 02 Sat: 98 ECG Mon: 4. Pain Intensity: 2-3 AVG 5. Fall Risk: Dizziness: N Needs help standing or walking: N Fallen in the last 3 months: N Fall risk comments: 6. Patient on Blood Thinner: None 7. History of Hypertension: Y 8. Opioid Therapy greater than 6 weeks: Y Opiate Contract Signed: 04/15/16 9. Risk Assessment Tool Provided: LOW RISK 1 10. Functional Assessment Tool: 11. Recreational Drug Use: Never Drug Type: Tobacco Use: Never Smoker Tobacco Type: Amount or Packs/day: How Many Years: Alcohol Use: Yes Frequency: Special Occasions Quant:
--- NOTE | 2020-03-20 14:23 | HPC ---
[facility] [address] [address] PAIN MANAGEMENT CONSULTATION Name: BERNARD MONACO Room #: REG [facility]..#: [id number] Admission: 03/19/20 Attend Phys: Rhianna Perla Discharge: Date of : 62 Report #: [id number] THIS REPORT FOR: cc: Deirdre Cross MD,Deirdre Perla,Rhainna GONZALES ~ DATE OF SERVICE: 03/19/2020 CHIEF COMPLAINT: Bilateral lower extremity pain, low back pain and bilateral knee pain. HISTORY OF PRESENT ILLNESS: This is a pleasant 60-year-old female who returns to the pain clinic today for refill of her medications. Today, she is reporting a pain score of 2-3/10 today. Her pain is located in her low back, bilateral knees and shoulders. She suffers from axial back pain and myofascial pain. She has been stable on her Hysingla 30 mg for quite some time as well as tramadol for breakthrough pain. She denies any side effects of opioid-induced constipation or daytime somnolence as a result of her medications. She is requesting refills today. 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 She states that she has been helping care for her brother who has been receiving chemotherapy that has been keeping her busy. She is looking forward to starting to exercise and walk at her [facility]. She has lost some weight since her last visit. She states that she is not snacking like she used to at work and finds this has been beneficial and has been able to lose 13 pounds since our last visit. ALLERGIES: SULFA. CURRENT LIST OF MEDICATIONS: Tizanidine 2 mg b.i.d., tramadol 50 mg b.i.d., Hysingla 30 mg daily, Zoloft, Protonix, Ambien, Symbicort, Glucophage, Lyrica, Lipitor, lisinopril, and clonazepam. PQRS: 1. She has osteoarthritis in multiple joints that is diffuse including elbows, ankles, hands, knees and back. Denies any rheumatoid arthritis. 2. Height is 5 feet 4 inches, weight is 287, BMI is 49. Again, this is a decrease from 302 at her last visit. 3. Vital signs 149/83, pulse is 90, respirations 16, oxygen sat is 98%. 4. Pain score is 2-3. 5. Denies dizziness. Does use a cane for ambulation, has not fallen in the last 3 months. 6. The patient is not on any blood thinners, but does take medicine for hypertension. [address] [address] PAIN MANAGEMENT CONSULTATION Name: BERNARD MONACO Room #: REG [facility] Zoya#: [id number] Admission: 03/19/20 Attend Phys: Rhianna Perla Discharge: Date of : 62 Report #: [id number] 7. Opioid therapy is greater than 6 weeks; therefore an opioid signed contract is on the chart. Risk assessment is low. Functional assessment is 22/70. 8. Recreational drug use, she denies. She is not a smoker and occasionally drinks alcohol. According to the prescription monitoring system, the patient is filling appropriately in a timely fashion. She is due to fill her medications today. Her morphine mEq is 40 MME according to the CDC guidelines. We have an opioid agreement on the chart as well as a random drug screen. We will check that again at her next visit. PHYSICAL EXAMINATION: GENERAL: This is a well-developed, well-hydrated, class III, morbidly obese, pleasant 60-year-old female who appears her stated age, placing her current pain score today at 2-3. HEENT: Normocephalic, atraumatic. Extraocular eye muscles are intact. She is wearing a mask. EXTREMITIES: No clubbing, no cyanosis, 1+ edema in her right lower extremity. Wearing compression hose on bilaterally. MUSCULOSKELETAL: She has tenderness in her lumbosacral region. Various trigger points noted in her lower back from her fibromyalgia. Her lower extremity strength is symmetrical, but deconditioned. She does use a cane at all times and has a slightly antalgic gait. ASSESSMENT: 1. Spinal stenosis of lumbar spine. 2. Lumbar radiculopathy. 3. Lumbosacral spondylosis. 4. Osteoarthritis involving multiple joints, most significantly in her knees. 5. Morbid obesity. 6. Fibromyalgia. 7. Complex medical management utilizing opioid medications under written agreement. We reviewed the fact that opiate medications are being used to provide analgesia adequate to support activities of daily living, not attempting to achieve a specific pain score on the 0-10 Visual Analog Scale. The current opiate medications are providing sufficient analgesia to allow the patient to participate in activities of daily living. The patient is not exhibiting any aberrant behavior suggestive of drug diversion. The patient is not having any adverse reactions to medications. The patient is not suffering from daytime somnolence or mental acuity changes. The patient is managing opiate-induced constipation with appropriate [id number] agents and dietary considerations. The patient was counseled on concern for caution with operating a motor vehicle while using opiate medications. [address] [address] PAIN MANAGEMENT CONSULTATION Name: BERNARD MONACO Room #: REG [facility]#: [id number] Admission: 03/19/20 Attend Phys: Rhianna Perla Discharge: Date of : 62 Report #: [id number] A physical exam was performed and the patient's functional status was evaluated. All patients with back pain were advised against the bed rest greater than 4 days and were advised to return to normal activities. Pain score assessment was noted and the treatment plan was reviewed with the patient. All current medications, both prescribed and OTC were reviewed and reconciled on the electronic medical record. Tobacco screening was accomplished and smoking cessation was advised when indicated. BMI was noted and diet/exercise modification was recommended for all patients following outside normal parameters. I reviewed with the patient today their responsibilities to safeguard prescription medications, reviewed their responsibility to utilize medications only as prescribed by the physician. They are to seek and receive pain medications only from 1 physician group ( [facility]). They are to use 1 pharmacy and keep the clinic informed if they change pharmacies. Their responsibilities include making followup visits in a timely fashion and to avoid abrupt discontinuation of medication usage. Their responsibilities further include bringing their medications (bottles from the pharmacy with residual pills) to the visit for possible confirmation of pill counts and the patient understands it is their responsibility to submit to random drug screens to ensure both that the medications prescribed are present, and that no other controlled substances are present. All prescriptions provided today were generated electronically. PLAN: 1. We discussed treatment options with the patient today. The patient states her pain is well controlled on her current dose of Hysingla. We have discussed lowering her medication. We will attempt to do that at her next visit. Continue her on her Hysingla 30 mg for another 3 months. The patient will continue to try and lose weight during this time and then we will decrease her to 20 mg daily. The patient has been stable on this dose for several months and she agrees to the plan of titrating if able. The patient had been on higher medications of Hysingla as well as morphine sulfate in the past and oxycodone. We have slowly been trying to taper her medications, which she is doing quite well on decreasing her dosages. 2. The patient has arthritic changes in her shoulders and knees. I encouraged her to use the Voltaren gel when her pain is increased. The patient does have this at home, but is also [id number]. The patient will utilize it on more painful days. 3. Scripts sent electronically by Dr. Tera Varner for 3 months. She will return then to see him and we will collect a random drug screen at that time. Today, he collaborated care and sent prescriptions. <ELECTRONICALLY SIGNED> By: Rhianna Perla 03/20/20 1423 [id number] Rhianna Perla /leonor
== END ==
LOC: PAIN 06:53
PROVIDERS: ATTEND Clinical Nurse Specialist Adult Health
DX: M47.27 Other spondylosis with radiculopathy, lumbosacral region (principal); M48.061 Spinal stenosis, lumbar region without neurogenic claudication; M19.90 Unspecified osteoarthritis, unspecified site; E66.01 Morbid (severe) obesity due to excess calories; M79.7 Fibromyalgia; Z79.891 Long term (current) use of opiate analgesic

== ENCOUNTER → 2020-05-28 | Outpatient (CLI) | payer OTHER ==
[~2020-05-28] VITALS: Ht 162.6 cm; Wt 128.4 kg
[2020-05-28 13:11] VITALS: BP 175/78
--- NOTE | 2020-05-28 13:32 | NUR ---
Pain Clinic Assessment: 1. History of Osteoarthritis: elbows hands ankles low back knees shoulders History of Rheumatoid Arthritis: NO 2. Height: 5 ft. 4 in. 162.6 cm. Weight: 283.0 lb. oz. 128.368 kg. Patient's BMI: 48.6 3. Vital Signs: BP: 175/78 Pulse: 93 Resp: 24 Temp: 02 Sat: 100 ECG Mon: 4. Pain Intensity: 4-5 AVG 5. Fall Risk: Dizziness: N Needs help standing or walking: Y Fallen in the last 3 months: N Fall risk comments: 6. Patient on Blood Thinner: None 7. History of Hypertension: Y 8. Opioid Therapy greater than 6 weeks: Y Opiate Contract Signed: 04/15/16 9. Risk Assessment Tool Provided: LOW RISK 1 10. Functional Assessment Tool: 11. Recreational Drug Use: Never Drug Type: Tobacco Use: Never Smoker Tobacco Type: Amount or Packs/day: How Many Years: Alcohol Use: Yes Frequency: Quant:
--- NOTE | 2020-05-29 09:11 | HPC ---
[facility] [place] [address] PAIN MANAGEMENT CONSULTATION Name: MACY MONACO Room #: REG [facility]..#: [id number] Admission: 05/28/20 Attend Phys: Rhianna Perla Discharge: Date of : 62 Report #: [id number] THIS REPORT FOR: cc: Deirdre Cross MD,Deirdre Perla,Rhianna GONZALES ~ DATE OF SERVICE: 05/28/2020 CHIEF COMPLAINT: Bilateral lower extremity pain, low back pain and knee pain. HISTORY OF PRESENT ILLNESS: This is a 60-year-old female who is tearful throughout some of our visit today. She reports her pain is a 4/5 today. She states that her pain has increased since she has retired. She is very depressed. We spent a significant portion of our visit today (25 min) counseling her regarding her depression and new long term. Macy does report the majority of her pain is in her low back and her knees. It is a sharp, aching pain that is worse with standing and movement. 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 The patient is very tearful, stating she is very depressed at home since she is retired at the end of last year. She feels lost and uncertain what she needs to accomplish each day. She finds most of her time spent just watching television. She does eat lunch with her each day, but otherwise has been not very productive. She feels like she has no ambition since she has been retired. ALLERGIES: SULFA. CURRENT LIST OF MEDICATIONS: Tramadol 50 mg p.r.n., Hysingla 30 mg daily, tizanidine, albuterol inhaler, Zoloft 25 mg, Protonix, Ambien p.r.n., Symbicort, Glucophage, Lyrica, Lipitor, lisinopril, and clonazepam. PQRS: 1. She has arthritic changes in her elbows, hands, ankles, backs and knees with diffuse osteoarthritis. She denies any rheumatoid arthritis. She does have fibromyalgia. 2. Height is 5 feet 4 inches, weight is 283, BMI is 48. 3. Vital signs 175/78, pulse is 93, respirations 24, oxygen sat is 100. 4. Pain score is 4-5. 5. The patient is not on any blood thinners, but does take medicine for hypertension. 6. Opioid therapy is greater than 6 weeks; therefore, an opioid signed contract is on the chart. Risk assessment is low. Functional assessment, she does need assistance with ambulation at times and has not fallen in the last 3 months. Risk assessment is low. Functional assessment is . [address] [address] PAIN MANAGEMENT CONSULTATION Name: MACY MONACO [id number] Admission: 05/28/20 Attend Phys: Rhianna Perla Discharge: Date of : 62 Report #: [id number] 7. Recreational drug use, she denies. She is not a smoker and occasionally drinks alcohol. According to the prescription monitoring system, the patient is filling at 2 pharmacies locally. She is here today because her prescriptions are off. The patient reported she has no further Hysingla. We did call her [facility]. They have her last Hysingla prescription enabling her to fill that on 06/05/2020, a call to [facility], which is her new pharmacy, clarified that they fill tramadol, which was transferred from [facility] for [address] Tu Varner. There was no refills. According to our report, Dr. Tera Varner fill that prescription. Dr. Tu Varner has left our practice greater than almost 3 years ago. We have never written a prescription for 144 pills, which they did give the patient. Our prescriptions were for 100 tablets for 30 days. They have no refills. They stated that 144 pills was a 36-day supply and the patient is due on 06/05/2020 for her next prescription. According to the patient, she is now transferring all of her prescriptions to [facility] since she has had difficulty with [facility]. Greater then 10 minutes was spend on this endeavor. PHYSICAL EXAMINATION: GENERAL: This is a well-developed, well-hydrated, class III, morbidly obese, very depressed 60-year-old, rating her pain score today at 4/5. HEENT: Normocephalic, atraumatic. Pupils equal, round and reactive to light. She is wearing a mask and tearful today. EXTREMITIES: No clubbing, no cyanosis. She has 1+ edema in her lower extremities with slight hemodialysis in her lower extremities or discoloration in her lower extremities. MUSCULOSKELETAL: She has tenderness in the lumbosacral region with various trigger points noted. Her legs are deconditioned, but symmetrical and she has an antalgic gait. ASSESSMENT: 1. Spinal stenosis of lumbar spine. 2. Lumbar radiculopathy. 3. Lumbosacral spondylosis. 4. Osteoarthritis involving knees, shoulders and other joints. 5. Morbid obesity, weight has decreased 5 pounds in the last 3 months. 6. Fibromyalgia. 7. Complex medical management under terms of written opioid agreement. PLAN: 1. We discussed treatment options with the patient today. A great deal of time was spent counseling the patient spent 25 minutes total with her encouraging her to make a plan for each day, encouraging her to be active and not sit in her chair every day. She has plans to clean out her bedroom. Her is working at home that she feels that makes it more difficult for her to [facility] [address] [place] [address] PAIN MANAGEMENT CONSULTATION Name: MACY MONACO Room #: REG [facility]#: [id number] Admission: 05/28/20 Attend Phys: Rhianna Perla Discharge: Date of : 62 Report #: [id number] accomplish her daily tasks encouraged her to make lists and checked them off slowly. Also, encouraged volunteer work, especially after she receives her second COVID vaccine. We did discuss some family issues she is having as well and gave options to try to work through that as well. 2. We discussed the differences in her dates and prescription amounts that she received from her pharmacy. The patient realized 144 pills was not her normal amount per month. She did lock up the remainder 44 pills and did not take those extra. She understands she is due to fill her medications on 06/05/2020 and has plenty of medications to last for that day. Today, we will have Dr. Tera Varner send the Hysingla 30 mg tablet for 4-week and 8-week release to her [facility]. She will pick her final prescription up from [facility] on 06/05/2020. Tramadol 50 mg tablets, #100 that will be a 30-day supply will be sent to her [facility] for 3 total months. Tizanidine will also be sent to her pharmacy for refills. 3. The patient did feel more upbeat when she left and will return in 3 months with a plan and discussion of what she has accomplished hopefully in the next 3 months. We encouraged her to be active and continue to walking outside if she is able to decrease weight as she has been doing since she has been retired. Time spent with the patient in consultation, reviewing imaging, reviewing clinical notes and physician report, physical examination correlation of finding and encouragement regarding her depression, 30 minutes. Time spent in preparation for appointment reviewing prescription monitoring system, review of previous records and proposed treatment options as well as calling multiple pharmacies, 10 minutes. Time spent in preparation and sending electronic prescriptions with collaborating physician, Dr. Tera Varner and documentation of visit and plan of treatment, 6 minutes . Total time spent 46 minutes. <ELECTRONICALLY SIGNED> By: Rhianna Perla 05/29/20 0911 [id number] Rhianna Perla /leonor
== END ==
LOC: PAIN 05-27 08:58
PROVIDERS: ATTEND Clinical Nurse Specialist Adult Health
DX: M47.27 Other spondylosis with radiculopathy, lumbosacral region (principal); M17.0 Bilateral primary osteoarthritis of knee; M19.011 Primary osteoarthritis, right shoulder; M19.012 Primary osteoarthritis, left shoulder; E66.01 Morbid (severe) obesity due to excess calories; M79.10 Myalgia, unspecified site; M48.061 Spinal stenosis, lumbar region without neurogenic claudication; F11.20 Opioid dependence, uncomplicated; Z88.8 Allergy status to other drugs, medicaments and biological substances; Z79.899 Other long term (current) drug therapy

== ENCOUNTER → 2021-01-06 | Outpatient (CLI) | payer OTHER ==
[~2021-01-06] VITALS: Ht 162.6 cm; Wt 130.9 kg
[~2021-01-06] MED LIST changes: +BUSPIRONE HCL5 MG PO; +CYMBALTA60 MG PO; +FENOFIBRATE160 MG PO; +FLEXERIL PO; +MOBIC7.5 MG PO; +SINGULAIR 10 MG10 MG PO; +TOPROL XL25 MG PO; +VALIUM2 MG PO
[2021-01-06 09:28] VITALS: BP 155/77
--- NOTE | 2021-01-06 09:56 | NUR ---
Pain Clinic Assessment: 1. History of Osteoarthritis: elbows hands ankles low back knees shoulders History of Rheumatoid Arthritis: NO 2. Height: 5 ft. 4 in. 162.6 cm. Weight: 288.6 lb. oz. 130.908 kg. Patient's BMI: 49.5 3. Vital Signs: BP: 155/77 Pulse: 88 Resp: 22 Temp: 02 Sat: 100 ECG Mon: 4. Pain Intensity: 4 5. Fall Risk: Dizziness: N Needs help standing or walking: Y Fallen in the last 3 months: N Fall risk comments: 6. Patient on Blood Thinner: None 7. History of Hypertension: Y 8. Opioid Therapy greater than 6 weeks: Y Opiate Contract Signed: 04/15/16 9. Risk Assessment Tool Provided: LOW RISK 1 10. Functional Assessment Tool: 11. Recreational Drug Use: Never Drug Type: Tobacco Use: Never Smoker Tobacco Type: Amount or Packs/day: How Many Years: Alcohol Use: Yes Frequency: Special Occasions Quant: 1
--- NOTE | 2021-01-07 08:51 | HPC ---
[facility] [address] [place] [address] PAIN MANAGEMENT CONSULTATION Name: BERNARD MONACO Room #: REG [facility]..#: [id number] Admission: 01/06/21 Attend Phys: Rhianna Perla Discharge: Date of : 62 Report #: [id number] THIS REPORT FOR: cc: Deirdre Cross MD,Deirdre Perla,Rhianna GONZALES ~ cc: Deirdre Cross MD, Tera Varner DO DATE OF SERVICE: 01/06/2021 CHIEF COMPLAINT: Bilateral lower extremity pain, low back pain and knee pain. HISTORY OF PRESENT ILLNESS: This is a morbidly obese, very pleasant 60-year-old female, who returns to our clinic after a significant absence to discuss pain issues. We last saw the patient in April. At that time, she had recently retired and was trying to adjust to intermediate. She had been taking Hysingla 30 mg tablets a day as well as tramadol. Since that time, the patient reports she was exercising, walking at [facility] and doing quite well. Unfortunately, she reports waking up one day and had significant heaviness in her arms and was not able to walk on her own. She had significant weakness in her legs. Her took her to the Emergency Room where she underwent an MRI and CT and was found to have a herniated C2-C3 disk. The patient reports that she ultimately underwent surgery at [facility] by Dr. Octavio Gandhoke and had an anterior fusion. She then went to [facility] for rehabilitation for inpatient 2-week stay and then finally outpatient rehabilitation at home. During that time while she was in rehab, she was found to have some cardiac issues. Significant medication changes have been made since we have last seen her. The patient reports that she is now doing quite well in her recovery and now would like to discuss some return of low back pain. The patient reports today that her pain is mostly in the lower back that radiates into her legs. She does have significant lymphedema in her legs bilaterally and wears compression hose, but does not have a lymphedema pump. She reports that she has been having aching, sharp pain in her back and legs as well as her hands and her arthritic joints since the weather has changed. She had been off all of her opioid medications, but still had some tramadol 50 mg tablets at home. Since this initial weather change, she reports having to rely on that medication at least once a day when she had the severe issues. She is here today wondering if she may have a refill of tramadol medications. She states her pain is a 4/10. ALLERGIES: SULFA. CURRENT LIST OF MEDICATIONS: Cymbalta 60 mg daily, Singulair, fenofibrate, diazepam p.r.n., metoprolol, buspirone, Flexeril p.r.n., Symbicort, Protonix, Glucophage, Lyrica 75 mg b.i.d., and atorvastatin. [address] [address] PAIN MANAGEMENT CONSULTATION Name: BERNARD MONACO Room #: REG [facility] Kenny#: [id number] Admission: 01/06/21 Attend Phys: Rhianna Perla Discharge: Date of : 62 Report #: [id number] PQRS: 1. She has diffuse osteoarthritic changes in her hands, elbows, back, shoulders and knees. Denies any rheumatoid arthritis. Height is 5 feet 4 inches, weight is 288. BMI is 49. 2. Vital signs: Blood pressure 155/77, pulse is 88, respirations 22, oxygen sat is 100. 3. Pain score is 4/10. 4. Denies dizziness. Does use a cane with ambulation and has not fallen in the last 3 months. 5. The patient is not on any blood thinners, but does take medicine for hypertension. 6. Opioid therapy is less than 6 weeks. 7. Risk assessment is low. Functional assessment is 22/70. 8. Recreational drug use, she denies. She is not a smoker and occasionally drinks alcohol. According to the prescription monitoring system, she has not filled any opioids for quite some time. Her last tramadol prescription from Dr. Tera Varner was filled on 09/26/2020, and she has not had any Hysingla fills since June. She did have one short oxycodone script post-surgery. She is, however, taking a benzodiazepine of Valium now 2 mg tablets, half a tablet as needed. PHYSICAL EXAMINATION: GENERAL: This is an alert and orientated, class 3 morbidly obese, pleasant 60-year-old female who appears her stated age, rating her pain score 4/10 today. HEENT: Normocephalic, atraumatic. Pupils equal, round and reactive to light. She is wearing a mask. EXTREMITIES: No clubbing, no cyanosis. She has 2+ edema in her lower extremities with hemosiderin staining in her lower extremities. NECK: Limited range of motion due to previous surgeries. She has a well-healed approximated scar in the anterior portion of her neck. MUSCULOSKELETAL: She has tenderness in the lumbosacral region with various trigger points noted from her fibromyalgia. Her legs are deconditioned, but symmetrical. She does have a cane to assist with ambulation and has an antalgic gait. ASSESSMENT: 1. Spinal stenosis of lumbar spine. 2. Lumbar radiculopathy. 3. Lumbar spondylosis. 4. Recent anterior cervical fusion from herniated disk. 5. Osteoarthritis affecting multiple joints. 6. Morbid obesity. 7. Fibromyalgia. 8. Medication management utilizing opioid medications. [address] [place] [address] PAIN MANAGEMENT CONSULTATION Name: BERNARD MONACO Room #: REG [facility] Kenny#: [id number] Admission: 01/06/21 Attend Phys: Rhianna Perla Discharge: Date of : 62 Report #: [id number] PLAN: 1. We discussed treatment options with the patient today, congratulated her on her hard work decreasing her opioid medications, wean off her Hysingla and taking tramadol only p.r.n. Since we have last seen her, she is also started on Cymbalta, which does help her overall pain generators and has been able to decrease her Lyrica. Unfortunately, the pain has returned in her lower back and hands. I believe this is mostly arthritic in nature. The patient is currently not on any anti-inflammatory medications. I believe she may benefit from meloxicam 7.5 mg tablets starting at once a day. This may need to be increased to b.i.d. if not controlled with the lower dose. The patient does have some history of a duodenal ulcer, but takes Protonix twice a day and has not had issues for years. Scripts will be sent for #30 with 2 refills. 2. I also discussed the use of Voltaren gel to her hands and knees as needed, the patient may find this over the counter. 3. We did discuss opioid medications. She is requesting tramadol today. I explained that we would be willing to start on a very low amount, taking it only when she has severe pain, not on the schedule and not on a daily basis. The patient is agreeable with this. We will provide her with tramadol 50 mg tablets #60 with 1 additional refill. I believe this will last her several months. 4. I encouraged her to be as active as she has been, encouraging her to continue walking at [facility] to build her endurance. I also encouraged her to discuss with her doctor regarding her lymphedema and the lymphedema pump that may be beneficial for her to have at home. 5. The patient will return as needed. Time spent with the patient in consultation, reviewing recent imaging and clinical notes and physician reports, physical examination and correlation of findings and encouraged the patient, 25 minutes. Time spent in preparation for appointment, reviewing prescription monitoring system, reviewing previous records and proposed treatment options as well as prescription monitoring, 5 minutes. Time spent preparing and sending electronic prescriptions with collaborating physician, documentation of visit and plan of treatment, 5 minutes. Total time spent 35 minutes. <ELECTRONICALLY SIGNED> By: Rhianna Perla 01/07/21 [id number] Rhianna Perla /leonor
== END ==
LOC: PAIN 07:15
PROVIDERS: ATTEND Clinical Nurse Specialist Adult Health
DX: M47.26 Other spondylosis with radiculopathy, lumbar region (principal); M48.061 Spinal stenosis, lumbar region without neurogenic claudication; M43.22 Fusion of spine, cervical region; M19.09 Primary osteoarthritis, other specified site; M79.661 Pain in right lower leg; M79.662 Pain in left lower leg; M25.569 Pain in unspecified knee; M79.7 Fibromyalgia; E66.01 Morbid (severe) obesity due to excess calories; Z79.899 Other long term (current) drug therapy; Z88.8 Allergy status to other drugs, medicaments and biological substances

== ENCOUNTER → 2021-03-31 | Outpatient (CLI) | payer OTHER ==
[~2021-03-31] VITALS: Ht 162.6 cm; Wt 131.8 kg
[2021-03-31 09:36] VITALS: BP 138/77
--- NOTE | 2021-03-31 10:03 | NUR ---
Pain Clinic Assessment: 1. History of Osteoarthritis: elbows hands ankles low back knees shoulders History of Rheumatoid Arthritis: NO 2. Height: 5 ft. 4 in. 162.6 cm. Weight: 290.6 lb. oz. 131.816 kg. Patient's BMI: 49.9 3. Vital Signs: BP: 138/77 Pulse: 90 Resp: 20 Temp: 02 Sat: 98 ECG Mon: 4. Pain Intensity: 2-3 5. Fall Risk: Dizziness: N Needs help standing or walking: Y Fallen in the last 3 months: N Fall risk comments: 6. Patient on Blood Thinner: None 7. History of Hypertension: Y 8. Opioid Therapy greater than 6 weeks: Y Opiate Contract Signed: 04/15/16 9. Risk Assessment Tool Provided: LOW RISK 1 10. Functional Assessment Tool: 11. Recreational Drug Use: Never Drug Type: Tobacco Use: Never Smoker Tobacco Type: Amount or Packs/day: How Many Years: Alcohol Use: Yes Frequency: Quant:
== END ==
LOC: PAIN 09:20
PROVIDERS: ATTEND Clinical Nurse Specialist Adult Health
DX: M54.16 Radiculopathy, lumbar region (principal); M48.061 Spinal stenosis, lumbar region without neurogenic claudication; M19.90 Unspecified osteoarthritis, unspecified site; M79.7 Fibromyalgia; E66.9 Obesity, unspecified; M79.661 Pain in right lower leg; M79.662 Pain in left lower leg; Z88.8 Allergy status to other drugs, medicaments and biological substances; Z79.84 Long term (current) use of oral hypoglycemic drugs; Z79.899 Other long term (current) drug therapy